=== PATIENT | female | born 1970 | race American Indian/Alaskan Native ===

== ENCOUNTER 2017-11-22 08:48 | Observation (INO) | payer OTHER ==
--- NOTE | 2017-11-22 09:06 | C.PDOC ---
History Of Present Illness 47-YEAR-OLD FEMALE, PMHx INCLUDES MIGRAINES, PRESENTS TO THE EMERGENCY DEPARTMENT WITH COMPLAINTS OF RIGHT SIDED HEADACHE, THAT SHE WOKE UP WITH AROUND ?TIME, TODAY. PT A HX OF MIGRAINES, NORMALLY GETS AN AURA BUT NO ASSOCIATED AURA TODAY. STATES NEW ONSET L SIDED CHEST PAIN ONSET WHILE DRIVING YESTERDAY AFTERNOON, WITH L ARM AND L LEG PARASTHESIAS. STATES CHEST PAIN LASTED 15 MIN, AND RESOLVED SPONTANEOUSLY, BUT PARASTHESIAS CONSTANT AND UNCHANGED. NO ASSOCIATED WEAKNESS, INTERMITTENT CHEST DISCOMFORT NOW RESOLVED. PT HAS SOME ASSOCIATED NAUSEA. EXAM NEG PMD CARLOS Time Seen by Provider: 11/22/17 09:03 Chief Complaint (Nursing): Chest Pain History Per: Patient History/Exam Limitations: no limitations Onset/Duration Of Symptoms: Hrs Current Symptoms Are (Timing): Still Present Severity: Moderate Past Medical History Reviewed: Historical Data, Nursing Documentation, Vital Signs Vital Signs: Last Vital Signs Temp 99 F 11/22/17 08:56 Pulse 84 11/22/17 10:04 Resp 16 11/22/17 10:04 BP 130/91 H 11/22/17 10:04 Pulse Ox 98 11/22/17 10:07 - Medical History PMH: HTN Family History: States: No Known Family Hx - Social History Hx Alcohol Use: Yes Hx Substance Use: No - Immunization History Hx Tetanus Toxoid Vaccination: No Hx Influenza Vaccination: No Hx Pneumococcal Vaccination: No Review Of Systems Except As Marked, All Systems Reviewed And Found Negative. Constitutional: Negative for: Fever, Chills, Weakness Cardiovascular: Positive for: Chest Pain Respiratory: Negative for: Shortness of Breath Gastrointestinal: Positive for: Nausea. Negative for: Vomiting, Abdominal Pain Musculoskeletal: Negative for: Neck Pain, Back Pain Skin: Negative for: Rash Neurological: Positive for: Numbness, Headache. Negative for: Incoordination, Change in Speech, Confusion, Altered Mental Status, Dizziness Physical Exam - Physical Exam Appears: Well, Non-toxic, No Acute Distress Skin: Normal Color, Warm, Dry Head: Atraumatic, Normacephalic Eye(s): bilateral: Normal Inspection, PERRL, EOMI Nose: Normal Oral Mucosa: Moist Lips: Normal Appearing Neck: Normal ROM Cardiovascular: Rhythm Regular Respiratory: Normal Breath Sounds, No Accessory Muscle Use Gastrointestinal/Abdominal: Soft, No Tenderness Back: Normal Inspection Extremity: Normal ROM, No Deformity, No Swelling Neurological/Psych: Other (SEE NIH) ED Course And Treatment - Laboratory Results Result Diagrams: 11/22/17 09:09 11/22/17 09:09 ECG: Interpreted By Me, Viewed By Me ECG Rhythm: Sinus Rhythm ECG Interpretation: No Acute Changes Rate From EC O2 Sat by Pulse Oximetry: 98 (RA) Pulse Ox Interpretation: Normal - CT Scan/US HEAD Other Rad Studies (CT/US): Radiology Report Reviewed (D/W DR CORONEL) CT/US Interpretation: Accession No. : [id number]. Patient Name / ID : MIS TREJO / [id number]. Exam Date : 11/22/2017 09:15:58 ( Approved ). Study Comment : Sex / Age : F / 47Y. Creator : Costa Blanco MD. Dictator : Costa Blanco MD. Restaurant Host/Hostess : Cross Tie Tram Loader : Costa Blanco MD. Approver2 : Report Date : 11/22/2017 09:34:48. My Comment : . PROCEDURE: CT HEAD WITHOUT CONTRAST. HISTORY: Code Stroke. COMPARISON: None available. TECHNIQUE: Axial computed tomography images were obtained through the head/brain without intravenous contrast. Radiation dose: Total exam DLP = 895.60 mGy-cm. This CT exam was performed using one or more of the following dose reduction techniques: Automated exposure control, adjustment of the mA and/or kV according to patient size, and/or use of iterative reconstruction technique. FINDINGS: HEMORRHAGE: No intracranial hemorrhage. BRAIN: Normal carbajal-white matter differentiation and density are appreciated throughout the cerebrum and cerebellum with the brainstem appearing unremarkable as well. There is no mass effect. There is no suspicious extra- axial fluid collection and the midline brain anatomy appears diffusely unremarkable. VENTRICLES: Unremarkable. No hydrocephalus. CALVARIUM: Unremarkable. PARANASAL SINUSES: Unremarkable as visualized. No significant inflammatory changes. MASTOID AIR CELLS: Unremarkable as visualized. No inflammatory changes. OTHER FINDINGS: None. IMPRESSION: Normal appearing CT of the Head. Follow-up head CT or MRI recommended given clinical history of stroke. Discussed with Dr. Hameed 11/22/2017 9:33 a.m.. CTA NECK Other Rad Studies (CT/US): Read By Radiologist, Radiology Report Reviewed CT/US Interpretation: Accession No. : [id number]. Patient Name / ID : MIS TREJO / [id number]. Exam Date : 11/22/2017 09:18:38 ( Addendum_ Approved ). Study Comment : Sex / Age : F / 47Y. Creator : Costa Blanco MD. Dictator : Costa Blanco MD. Restaurant Host/Hostess : Cross T[employer] Tram Loader : Costa Blanco MD. Approver2 : Report Date : 11/22/2017 09:42:13. My Comment : . ADDENDUM: Contrast Dose: Visipaque 320, 100 cc. Radiation dose:Total exam DLP = 587.85 mGy-cm. [ Addendum Report Added by Costa Blanco MD at 11/22/2017 09:44:04 ]. PROCEDURE: CT Angiography of the Brain. HISTORY: R SIDED MARTÍNEZ, LUE/LLE PARESTHESIA, CP. COMPARISON: None available. TECHNIQUE: CT angiography of the intracranial and neck arteries was performed. Coronal and sagittal maximum intensity projection reformatted images were generated. Contrast Dose: Radiation dose:Total exam DLP = mGy-cm. This CT exam was performed using one or more of the following dose reduction techniques : Automated exposure control, adjustment of the mA and/or kV according to patient size, and/or use of iterative reconstruction technique. FINDINGS: INTERNAL CEREBRAL ARTERIES: There is a moderate stenosis of the mid segment left cavernous ICA. The skull base, petrous, right cavernous and supraclinoid segments are bilaterally widely patent. ANTERIOR CEREBRAL ARTERIES: Unremarkable. A1 and A2 segments are widely patent. Smaller distal branches unremarkable, as visualized. MIDDLE CEREBRAL ARTERIES: Unremarkable. M1 and M2 segments are widely patent. Perisylvian branches grossly symmetric. POSTERIOR CIRCULATION: Basilar Artery: Unremarkable. Distal Vertebral Arteries : Unremarkable. Posterior Cerebral Arteries: Unremarkable. Posterior Inferior Cerebellar Arteries: Unremarkable. NECK CTA: Common Carotid arteries: The bilateral common carotid appear widely patent from their origins to their bifurcations with no significant stenosis appreciated. No evidence to suggest common carotid artery dissection. Internal Carotid arteries: No significant stenosis is appreciated throughout the cervical internal carotid artery segments bilaterally and there is no evidence of dissection either. External Carotid arteries: Appear unremarkable bilaterally. Vertebral arteries: Hypoplastic distal left vertebral artery is appreciated with the right vertebral artery are widely patent throughout. No significant stenosis or definite pattern of dissection. ANEURYSM/ VASCULAR MALFORMATIONS: None. OTHER FINDINGS: None. IMPRESSION: Moderate stenosis cavernous left ICA. Widely patent right ICA. Patent bilateral posterior communicating arteries. Hypoplastic left vertebral artery distal segment. No significant stenosis. No occlusion appreciable. No arteriovascular malformation or aneurysm identified. NIHSS Stroke Scale - Date/Time Evaluation Performed Date Performed: 11/22/17 Time Performed: 09:03 When Was NIHSS Performed: Code Stroke - How Severe is the Stroke Level of Consciousness: 0=Alert LOC to Questions: 0=Both comments correct LOC to commands: 0=Obeys both correctly Best Gaze: 0=Normal Visual: 0=No visual loss Facial: 0=Normal Motor Arm - Left: 0=No drift Motor Arm - Right: 0=No drift Motor Leg - Left: 0=No drift Motor Leg - Right: 0=No drift Limb Ataxia: 0=Absent Sensory: 1=Mild to moderate loss Best Language: 0=No aphasia Dysarthia: 0=Normal articulation Extinction & Inattention (Neglect): 0=Normal, no object Score: 1 NIHSS Stroke Scale 2 - Date/Time Evaluation Performed Date Performed: 11/22/17 Time Performed: 10:18 When Was NIHSS Performed: Code Stroke Re-evaluation - How Severe is the Stroke Level of Consciousness: 0=Alert LOC to Questions: 0=Both comments correct LOC to commands: 0=Obeys both correctly Best Gaze: 0=Normal Visual: 0=No visual loss Facial: 0=Normal Motor Arm - Left: 0=No drift Motor Arm - Right: 0=No drift Motor Leg - Left: 0=No drift Motor Leg - Right: 0=No drift Limb Ataxia: 0=Absent Sensory: 1=Mild to moderate loss Best Language: 0=No aphasia Dysarthia: 0=Normal articulation Extinction & Inattention (Neglect): 0=Normal, no object Score: 1 Severity Of Stroke: 1-4 = Minor Stroke Progress - Re-Evaluation Re-evaluation Note: Progress: 09:00 Code stroke called. WILL HOLD IMITREX DUE TO CONCERN POSSIBLE CVA 09:[address] Trejo, aware of ER findings, will call back. Labs and CT pending 11/22/17 10:[address] TREJO, PENDING REVIEW INTERVENTIONAL. WILL CONSULT, RECOMMENDS ASA AND BENADRYL, MG 400 MG FOR MARTÍNEZ. DEFER IMITREX. EXAM UNCH INITIAL, VSS. 11/22/17 10:19 D/W DR ALDANA C/F PMD AWARE OF ER FINDINGS WILL ADMIT - Data Reviewed Data Reviewed: Lab, Diagnostic imaging, EKG, Old records - Critical Care Citical Care: Excluding Proc Time Critical Care Time: 90 minutes - Continuity of Care Discussed patient case with:: Covering for PMD Discussed pt. case with specialty development consultant/specialty: Neurology rTPA Inclusion/Exclusion - Refusal of Treatment Patient Refused Treatment: No - Inclusion Criteria for Altepase Patient is 18 years or Older: Yes The Clinical Diagnosis of Ischemic Stroke That is Causing a Potentially Disabling Neurological Deficit: Yes Time of Onset is Well Established to be Less Than 270 Minute Before Treatment Would Begin: No Risk/Benefit Discussed With Patient/Family Member Present: Yes - Exclusion Criteria for Altepase Uncontrolled Hypertension at Time of Treatment (Systolic BP above 185 or Diastolic BP above 110 mmHg): No Active Internal Bleeding: No Known Bleeding Diathesis Including but Not Limited to: Platelets Below 100,000/ mm,PTT Above 40 sec After Heparin Use, Current Use of Oral Anitcoagulant With INR Greater Than 1.7 or PT Greater Than 15 secs: No Evidence of an Intracranial Hemorrhage: No Evidence of Major Acute Infarct With Signs Greater Than 1/3 MCA Territory: No Suspicion of Subarachnoid Hemorrhage on Pretreatment Evaluation Even if CT Head Negative For Hemorrhage: No - Warning to TPA With Conditions Following Conditions Weighed Against Anticipated Benefit: Yes Condition: Stroke Serevity Too Mild, Care Team Unable to Determine Eligibilty Medical Decision Making Medical Decision Making: Plan: * Bloodwork * CT Head/Neck * EKG * Chest X-Ray * Fingerstick * IVFs * Reassess and Disposition Disposition Counseled Patient/Family Regarding: Studies Performed, Diagnosis - Disposition Disposition: HOSPITALIZED Disposition Time: 10:20 Condition: STABLE Forms: [facility] ([place]) - Clinical Impression Clinical Impression: Chest pain, Headache, TIA (transient ischemic attack) - Scribe Statement The provider has reviewed the documentation as recorded by the Scribe (Adalid Rivas) All medical record entries made by the Scribe were at my direction and personally dictated by me. I have reviewed the chart and agree that the record accurately reflects my personal performance of the history, physical exam, medical decision making, and the department course for this patient. I have also personally directed, reviewed, and agree with the discharge instructions and disposition. Decision To Admit - Pt Status Changed To: Hospital Disposition Of: Observation - . Bed Request Type: Telemetry Admitting Physician: Paco Aldana Patient Diagnosis: Chest pain, Headache, TIA (transient ischemic attack)
[2017-11-22] MEDS ORDERED: Iodixanol 320 MG/ML 100 ML BOTTLE IV ONE (09:08)
[2017-11-22 09:24] LABS: BASO # 0.1 K/uL (0.0-0.2); EOS # 0.2 K/uL (0.0-0.7); EOS % 2.8 % (0.0-4.0); HEMOGLOBIN 14.4 g/dL (11.0-16.0); LYMPH # 1.4 K/uL (1.0-4.3); LYMPH % 18.3 % (20.0-40.0); MEAN CELL VOLUME 89.7 fL (81.0-99.0); MEAN CORPUSCULAR HEMOGLOBIN 30.9 pg (27.0-31.0); MEAN CORPUSCULAR HGB CONC 34.5 g/dL (33.0-37.0); MEAN PLATELET VOLUME 7.5 fL (7.2-11.7); MONO # 0.8 K/uL (0.0-0.8); MONO % 10.4 % (0.0-10.0); NEUT # 5.2 K/uL (1.8-7.0); NEUT % 67.5 % (50.0-75.0); RBC 4.66 Mil/uL (3.80-5.20); WHITE BLOOD COUNT 7.7 K/uL (4.8-10.8)
[2017-11-22 09:32] LABS: INR 1.1; PROTHROMBIN TIME 11.9 SECONDS (9.7-12.2)
[2017-11-22 09:35] LABS: HDL CHOLESTEROL 53 mg/dL (30-70)
[2017-11-22] MEDS: Sodium Chloride 0.9% 1,000 ML IV SCH (09:36)
--- NOTE | 2017-11-22 09:36 | CT ---
PROCEDURE: CT HEAD WITHOUT CONTRAST. HISTORY: Code Stroke COMPARISON: None available. TECHNIQUE: Axial computed tomography images were obtained through the head/brain without intravenous contrast. Radiation dose: Total exam DLP = 895.60 mGy-cm. This CT exam was performed using one or more of the following dose reduction techniques: Automated exposure control, adjustment of the mA and/or kV according to patient size, and/or use of iterative reconstruction technique. FINDINGS: HEMORRHAGE: No intracranial hemorrhage. BRAIN: Normal carbajal-white matter differentiation and density are appreciated throughout the cerebrum and cerebellum with the brainstem appearing unremarkable as well. There is no mass effect. There is no suspicious extra-axial fluid collection and the midline brain anatomy appears diffusely unremarkable. VENTRICLES: Unremarkable. No hydrocephalus. CALVARIUM: Unremarkable. PARANASAL SINUSES: Unremarkable as visualized. No significant inflammatory changes. MASTOID AIR CELLS: Unremarkable as visualized. No inflammatory changes. OTHER FINDINGS: None. IMPRESSION: Normal appearing CT of the Head. Follow-up head CT or MRI recommended given clinical history of stroke. Discussed with Dr. Hameed 11/22/2017 9:33 a.m..
[2017-11-22] MEDS ORDERED: Sodium Chloride 0.9% 1,000 ML ONE (09:37)
--- NOTE | 2017-11-22 09:43 | CT ---
PROCEDURE: CT Angiography of the Brain. HISTORY: R SIDED MARTÍNEZ, LUE/LLE PARESTHESIA, CP COMPARISON: None available. TECHNIQUE: CT angiography of the intracranial and neck arteries was performed. Coronal and sagittal maximum intensity projection reformatted images were generated. Contrast Dose: Radiation dose:Total exam DLP = mGy-cm. This CT exam was performed using one or more of the following dose reduction techniques: Automated exposure control, adjustment of the mA and/or kV according to patient size, and/or use of iterative reconstruction technique. FINDINGS: INTERNAL CEREBRAL ARTERIES: There is a moderate stenosis of the mid segment left cavernous ICA. The skull base, petrous, right cavernous and supraclinoid segments are bilaterally widely patent. ANTERIOR CEREBRAL ARTERIES: Unremarkable. A1 and A2 segments are widely patent. Smaller distal branches unremarkable, as visualized. MIDDLE CEREBRAL ARTERIES: Unremarkable. M1 and M2 segments are widely patent. Perisylvian branches grossly symmetric. POSTERIOR CIRCULATION: Basilar Artery: Unremarkable. Distal Vertebral Arteries: Unremarkable. Posterior Cerebral Arteries: Unremarkable. Posterior Inferior Cerebellar Arteries: Unremarkable. NECK CTA: Common Carotid arteries: The bilateral common carotid appear widely patent from their origins to their bifurcations with no significant stenosis appreciated. No evidence to suggest common carotid artery dissection. Internal Carotid arteries: No significant stenosis is appreciated throughout the cervical internal carotid artery segments bilaterally and there is no evidence of dissection either. External Carotid arteries: Appear unremarkable bilaterally. Vertebral arteries: Hypoplastic distal left vertebral artery is appreciated with the right vertebral artery are widely patent throughout. No significant stenosis or definite pattern of dissection. ANEURYSM/ VASCULAR MALFORMATIONS: None. OTHER FINDINGS: None. IMPRESSION: Moderate stenosis cavernous left ICA. Widely patent right ICA. Patent bilateral posterior communicating arteries. Hypoplastic left vertebral artery distal segment. No significant stenosis. No occlusion appreciable. No arteriovascular malformation or aneurysm identified.
[2017-11-22 09:47] LABS: LDL CHOLESTEROL 96 mg/dL (0-129)
--- NOTE | 2017-11-22 09:56 | RAD ---
HISTORY: Code Stroke COMPARISON: No prior. FINDINGS: LUNGS: No active pulmonary disease. PLEURA: No significant pleural effusion identified, no pneumothorax apparent. CARDIOVASCULAR: Normal. OSSEOUS STRUCTURES: No significant abnormalities. VISUALIZED UPPER ABDOMEN: Normal. OTHER FINDINGS: None. IMPRESSION: No acute cardiopulmonary disease appreciated.
[2017-11-22 09:59] LABS: ALB/GLOB RATIO 1.3 (1.0-2.1); ALBUMIN 4.2 g/dL (3.5-5.0); ALT/SGPT 19 U/L (9-52); AST/SGOT 21 U/L (14-36); BLOOD UREA NITROGEN 8 mg/dL (7-17); CALCIUM 9.1 mg/dl (8.6-10.4); GFR AFRICAN-AMERICAN > 60; GFR NON-AFRICAN AMERICAN > 60
[2017-11-22 10:04] LABS: HCG,QUALITATIVE URINE NEGATIVE (NEGATIVE)
[2017-11-22 10:06] LABS: SQUAMOUS EPITHIAL 1 /hpf (0-5); URINE BILIRUBIN NEGATIVE (NEGATIVE); URINE BLOOD NEGATIVE (NEGATIVE); URINE CLARITY Clear (Clear); URINE COLOR Straw (YELLOW); URINE GLUCOSE (UA) NORMAL (Normal); URINE LEUKOCYTE ESTERASE NEG Leu/uL (Negative); URINE PROTEIN NEGATIVE (NEGATIVE); URINE UROBILINOGEN NORMAL mg/dL (0.2-1.0)
[2017-11-22] MEDS ORDERED: DiphenhydrAMINE 50 mg/ml Inj IVP STA (10:59)
[2017-11-22] MEDS ORDERED: Magnesium Sulfate 1 gm in D5W 1 GM/100 ML BAG IV ONE (10:59)
[2017-11-22] MEDS ORDERED: Magnesium Sulfate 1 gm in D5W 1 GM/100 ML BAG IVPB ONE (11:26)
[2017-11-22] MEDS ORDERED: DiphenhydrAMINE 50 mg/ml Inj ONE (11:26)
--- NOTE | 2017-11-22 12:29 | CP.PCM.CON ---
History of Present Illness - History of Present Illness History of Present Illness: 47 yr old woman with pmh of thyroiditis, Hypertension (diagnosed recently) and chronic migraine since childhood, presents for evaluation of spell that started yesterday afternoon. Miss Sanchez was driving at about 3 pm yesterday when she started to fell her left arm and leg became intensely numb and uncomfortable. She had no word finding difficulty visual symptoms, or weakness. This was accompanied by sharp chest pain that has since resolved, but the left arm and leg numbness persists. This morning, patient awoke with a headache that is 6/10, throbbing, typical of her migraine, and she came to hospital. She is not a TPA candidate as time of onset exceeeds the window. CTA head was done and shows moderate stenosis of her left ICA, but after consulting neurointerventional, , there is no intervention at this time. Miss Sanchez received benadryl and toradol and her headache resolved but numbness persists. Migraine history is as follows: started at around age 10, has tried topamax, depakote, imitrex and migranol. Never, tried botox, and since she started antihypertensives, her migraine frequency has decreased to 4 times a month, during her menses. Triggers are red wine and stress. ROS: as above. PMH/pSH: as above, as well as pituitary prolactinoma. FH/SH: no tobacco, occasional etoh. Works in an [employer] company, single. All: nkda. On exam: AAOX3. PERRL. Cn 2-12 normal. No facial droop. Speech fluent, no apraxia, no deficits in language. motor: strength: 5/5 ul and ll bl. sensory: decreased ft, pin in left arm and leg. Cerebellar: no dysmetria, gait normal, no ataxia. DTR: +2 ul and ll bl. toes downgoing, no clonus. Past Patient History - Past Social History Smoking Status: Never Smoked - CARDIAC Hx Hypertension: Yes - PSYCHIATRIC Hx Substance Use: No - SURGICAL HISTORY Hx Surgeries: No - ANESTHESIA Hx Anesthesia: No Meds Allergies/Adverse Reactions: Allergies Allergy/AdvReac Type Severity Reaction Status Date / Time No Known Allergies Allergy Verified 11/22/17 09:00 - Medications Medications: Current Medications Sodium Chloride (Sodium Chloride 0.9%) 1,000 mls @ 100 mls/hr IV .Q10H ANAIS Last Admin: 11/22/17 09:36 Dose: 100 mls/hr Results - Vital Signs Recent Vital Signs: Last Vital Signs Temp 99 F 11/22/17 08:56 Pulse 81 11/22/17 11:00 Resp 18 11/22/17 11:00 BP 130/87 11/22/17 11:00 Pulse Ox 97 11/22/17 11:00 - Labs Result Diagrams: 11/22/17 09:09 11/22/17 09:09 Labs: Laboratory Results - last 24 hr 11/22/17 11/22/17 11/22/17 08:58 09:09 09:09 WBC 7.7 RBC 4.66 Hgb 14.4 Hct 41.8 MCV 89.7 MCH 30.9 MCHC 34.5 RDW 14.0 Plt Count 290 MPV 7.5 Neut % (Auto) 67.5 Lymph % (Auto) 18.3 L [place] % (Auto) 10.4 H Eos % (Auto) 2.8 Baso % (Auto) 1.0 Neut # (Auto) 5.2 Lymph # (Auto) 1.4 [place] # (Auto) 0.8 Eos # (Auto) 0.2 Baso # (Auto) 0.1 PT 11.9 INR 1.1 APTT 32 Sodium Potassium Chloride Carbon Dioxide Anion Gap BUN Creatinine Est GFR ( Amer) Est GFR (Non-Af Amer) POC Glucose (mg/dL) 96 Random Glucose Hemoglobin A1c Calcium Total Bilirubin AST ALT Alkaline Phosphatase Troponin I Total Protein Albumin Globulin Albumin/Globulin Ratio Triglycerides Cholesterol LDL Cholesterol Direct HDL Cholesterol Urine Color Urine Clarity Urine pH Ur Specific [place] Urine Protein Urine Glucose (UA) Urine Ketones Urine Blood Urine Nitrate Urine Bilirubin Urine Urobilinogen Ur Leukocyte Esterase Urine WBC (Auto) Urine RBC (Auto) Ur Squamous Epith Cells Urine HCG, Qual Blood Type Antibody Screen 11/22/17 11/22/17 11/22/17 09:09 09:09 09:39 WBC RBC Hgb Hct MCV MCH MCHC RDW Plt Count MPV Neut % (Auto) Lymph % (Auto) [place] % (Auto) Eos % (Auto) Baso % (Auto) Neut # (Auto) Lymph # (Auto) [place] # (Auto) Eos # (Auto) Baso # (Auto) PT INR APTT Sodium 141 Potassium 3.8 Chloride 101 Carbon Dioxide 27 Anion Gap 17 BUN 8 Creatinine 0.7 Est GFR ( Amer) > 60 Est GFR (Non-Af Amer) > 60 POC Glucose (mg/dL) Random Glucose 88 Hemoglobin A1c 5.0 Calcium 9.1 Total Bilirubin 0.9 AST 21 ALT 19 Alkaline Phosphatase 71 Troponin I < 0.0120 Total Protein 7.4 Albumin 4.2 Globulin 3.2 Albumin/Globulin Ratio 1.3 Triglycerides 86 Cholesterol 166 LDL Cholesterol Direct 96 HDL Cholesterol 53 Urine Color Urine Clarity Urine pH Ur Specific [place] Urine Protein Urine Glucose (UA) Urine Ketones Urine Blood Urine Nitrate Urine Bilirubin Urine Urobilinogen Ur Leukocyte Esterase Urine WBC (Auto) Urine RBC (Auto) Ur Squamous Epith Cells Urine HCG, Qual Blood Type O POSITIVE Antibody Screen Negative 11/22/17 09:52 WBC RBC Hgb Hct MCV MCH MCHC RDW Plt Count MPV Neut % (Auto) Lymph % (Auto) [place] % (Auto) Eos % (Auto) Baso % (Auto) Neut # (Auto) Lymph # (Auto) [place] # (Auto) Eos # (Auto) Baso # (Auto) PT INR APTT Sodium Potassium Chloride Carbon Dioxide Anion Gap BUN Creatinine Est GFR ( Amer) Est GFR (Non-Af Amer) POC Glucose (mg/dL) Random Glucose Hemoglobin A1c Calcium Total Bilirubin AST ALT Alkaline Phosphatase Troponin I Total Protein Albumin Globulin Albumin/Globulin Ratio Triglycerides Cholesterol LDL Cholesterol Direct HDL Cholesterol Urine Color Straw Urine Clarity Clear Urine pH 8.0 Ur Specific [place] 1.016 Urine Protein Negative Urine Glucose (UA) Normal Urine Ketones Negative Urine Blood Negative Urine Nitrate Negative Urine Bilirubin Negative Urine Urobilinogen Normal Ur Leukocyte Esterase Neg Urine WBC (Auto) < 1 Urine RBC (Auto) < 1 Ur Squamous Epith Cells 1 Urine HCG, Qual Negative Blood Type Antibody Screen Assessment & Plan - Assessment and Plan (Free Text) Assessment: 47 yr old woman who has most likely a right thalamic stroke,6. as well as chronic refractory migraine. We will admit her and do stroke workup. HER NIH stroke scale is 1, and she is not a TPA candidate. PLan: 1. aspirin 325 mg po daily 2. PLease keep bp normotensive. 3. MRI Brain without contrast. 4. ECHO with bubble study 5. protein c, protein s, antiphospholipid antibody, homocysteine, lupus anticoagulant, factor 5 leiden, prothrombin mutation gene 6. admit to telemetry 7. PT/st/0t 8. venodynes. 9. Neurochecks. 10 botox for migraine on an outpatient basis with Dr. Clarke or myself. Thank you Dr. Pena
--- NOTE | 2017-11-22 15:35 | CP.PCM.HP ---
Past Patient History - Past Social History Smoking Status: Never Smoked - CARDIAC Hx Hypertension: Yes - PSYCHIATRIC Hx Substance Use: No - SURGICAL HISTORY Hx Surgeries: No - ANESTHESIA Hx Anesthesia: No Meds Allergies/Adverse Reactions: Allergies Allergy/AdvReac Type Severity Reaction Status Date / Time No Known Allergies Allergy Verified 11/22/17 09:00 Results - Vital Signs Recent Vital Signs: Last Vital Signs Temp 98.2 F 11/22/17 12:45 Pulse 70 11/22/17 14:30 Resp 18 11/22/17 14:30 BP 117/73 11/22/17 14:30 Pulse Ox 99 11/22/17 14:30 - Labs Result Diagrams: 11/22/17 09:09 11/22/17 09:09 Labs: Laboratory Results - last 24 hr 11/22/17 11/22/17 11/22/17 08:58 09:09 09:09 WBC 7.7 RBC 4.66 Hgb 14.4 Hct 41.8 MCV 89.7 MCH 30.9 MCHC 34.5 RDW 14.0 Plt Count 290 MPV 7.5 Neut % (Auto) 67.5 Lymph % (Auto) 18.3 L Henderson % (Auto) 10.4 H Eos % (Auto) 2.8 Baso % (Auto) 1.0 Neut # (Auto) 5.2 Lymph # (Auto) 1.4 Henderson # (Auto) 0.8 Eos # (Auto) 0.2 Baso # (Auto) 0.1 PT 11.9 INR 1.1 APTT 32 Sodium Potassium Chloride Carbon Dioxide Anion Gap BUN Creatinine Est GFR ( Amer) Est GFR (Non-Af Amer) POC Glucose (mg/dL) 96 Random Glucose Hemoglobin A1c Calcium Total Bilirubin AST ALT Alkaline Phosphatase Troponin I Total Protein Albumin Globulin Albumin/Globulin Ratio Triglycerides Cholesterol LDL Cholesterol Direct HDL Cholesterol Urine Color Urine Clarity Urine pH Ur Specific Gilead Urine Protein Urine Glucose (UA) Urine Ketones Urine Blood Urine Nitrate Urine Bilirubin Urine Urobilinogen Ur Leukocyte Esterase Urine WBC (Auto) Urine RBC (Auto) Ur Squamous Epith Cells Urine HCG, Qual Blood Type Antibody Screen 11/22/17 11/22/17 11/22/17 09:09 09:09 09:39 WBC RBC Hgb Hct MCV MCH MCHC RDW Plt Count MPV Neut % (Auto) Lymph % (Auto) Henderson % (Auto) Eos % (Auto) Baso % (Auto) Neut # (Auto) Lymph # (Auto) Henderson # (Auto) Eos # (Auto) Baso # (Auto) PT INR APTT Sodium 141 Potassium 3.8 Chloride 101 Carbon Dioxide 27 Anion Gap 17 BUN 8 Creatinine 0.7 Est GFR ( Amer) > 60 Est GFR (Non-Af Amer) > 60 POC Glucose (mg/dL) Random Glucose 88 Hemoglobin A1c 5.0 Calcium 9.1 Total Bilirubin 0.9 AST 21 ALT 19 Alkaline Phosphatase 71 Troponin I < 0.0120 Total Protein 7.4 Albumin 4.2 Globulin 3.2 Albumin/Globulin Ratio 1.3 Triglycerides 86 Cholesterol 166 LDL Cholesterol Direct 96 HDL Cholesterol 53 Urine Color Urine Clarity Urine pH Ur Specific Gilead Urine Protein Urine Glucose (UA) Urine Ketones Urine Blood Urine Nitrate Urine Bilirubin Urine Urobilinogen Ur Leukocyte Esterase Urine WBC (Auto) Urine RBC (Auto) Ur Squamous Epith Cells Urine HCG, Qual Blood Type O POSITIVE Antibody Screen Negative 11/22/17 09:52 WBC RBC Hgb Hct MCV MCH MCHC RDW Plt Count MPV Neut % (Auto) Lymph % (Auto) Henderson % (Auto) Eos % (Auto) Baso % (Auto) Neut # (Auto) Lymph # (Auto) Henderson # (Auto) Eos # (Auto) Baso # (Auto) PT INR APTT Sodium Potassium Chloride Carbon Dioxide Anion Gap BUN Creatinine Est GFR ( Amer) Est GFR (Non-Af Amer) POC Glucose (mg/dL) Random Glucose Hemoglobin A1c Calcium Total Bilirubin AST ALT Alkaline Phosphatase Troponin I Total Protein Albumin Globulin Albumin/Globulin Ratio Triglycerides Cholesterol LDL Cholesterol Direct HDL Cholesterol Urine Color Straw Urine Clarity Clear Urine pH 8.0 Ur Specific Gilead 1.016 Urine Protein Negative Urine Glucose (UA) Normal Urine Ketones Negative Urine Blood Negative Urine Nitrate Negative Urine Bilirubin Negative Urine Urobilinogen Normal Ur Leukocyte Esterase Neg Urine WBC (Auto) < 1 Urine RBC (Auto) < 1 Ur Squamous Epith Cells 1 Urine HCG, Qual Negative Blood Type Antibody Screen
[2017-11-22 18:19] VITALS: RESP 20
[2017-11-22 20:34] LABS: CK-MB 0.28 ng/mL (0.0-3.38)
[2017-11-23 02:19] LABS: CK-MB 0.25 ng/mL (0.0-3.38)
[2017-11-23] MEDS: Sodium Chloride 0.9% 1,000 ML IV SCH ×2 (06:13→15:10)
[2017-11-23] MEDS: Enoxaparin 80 mg Syringe SC SCH (10:04)
--- NOTE | 2017-11-23 11:28 | CARD ---
APPROVED REPORT EKG Measurement Heart [id number] <Conclusion> Normal sinus rhythm Possible Left atrial enlargement Borderline ECG
--- NOTE | 2017-11-23 17:10 | CP.PCM.CON ---
History of Present Illness - History of Present Illness History of Present Illness: 47 F with hx of HTN admitted for TIA like symptoms. denies chest pain and dyspnea Review of Systems - Constitutional Constitutional: absent: As Per HPI, Anorexia, Chills, Daytime Sleepiness, Excessive Sweating, Fatigue, Fever, Frequent Falls, Headache, Increased Appetite , Lethargy, Malaise, Night Sweats, Snoring, Sleep Apnea, Weight Gain, Weight Loss, Weakness, Other - EENT Eyes: absent: As Per HPI, Blind Spots, Blurred Vision, Change in Vision, Decreased Night Vision, Diplopia, Discharge, Dry Eye, Exophthalmos, Floaters, Irritation, Itchy Eyes, Loss of Peripheral Vision, Pain, Photophobia, Requires Corrective Lenses, Sees Flashes, Spots in Vision, Tunnel Vision, Other Visual Disturbances, Loss of Vision, Other Ears: absent: As Per HPI, Decreased Hearing, Ear Discharge, Ear Pain, Tinnitus, Abnormal Hearing, Disequilibrium, Dizziness, Other Nose/Mouth/Throat: absent: As Per HPI, Epistaxis, Nasal Congestion, Nasal Discharge, Nasal Obstruction, Nasal Trauma, Nose Pain, Post Nasal Drip, Sinus Pain, Sinus Pressure, Bleeding Gums, Change in Voice, Dental Pain, Dry Mouth, Dysphagia, Halitosis, Hoarsness, Lip Swelling, Mouth Lesions, Mouth Pain, Odynophagia, Sore Throat, Throat Swelling, Tongue Swelling, Facial Pain, Neck Pain, Neck Mass, Other - Cardiovascular Cardiovascular: absent: As Per HPI, Acrocyanosis, Chest Pain, Chest Pain at Rest , Chest Pain with Activity, Claudication, Diaphoresis, Dyspnea, Dyspnea on Exertion, Edema, Irregular Heart Rhythm, Pain Radiating to Arm/Neck/Jaw, Leg Edema, Leg Ulcers, Lightheadedness, Orthopnea, Palpitations, Paroxysmal Nocturnal Dyspnea, Pedal Edema, Radiating Pain, Rapid Heart Rate, Slow Heart Rate, Syncope, Other - Respiratory Respiratory: absent: As Per HPI, Cough, Dyspnea, Hemoptysis, Dyspnea on Exertion , Wheezing, Snoring, Stridor, Pain on Inspiration, Chest Congestion, Excessive Mucous Production, Change in Mucous Color, Pain with Coughing, Other - Gastrointestinal Gastrointestinal: absent: As Per HPI, Abdominal Pain, Belching, Bloating, Change in Bowel Habits, Change in Stool Character, Coffee Ground Emesis, Constipation, Cramping, Diarrhea, Dyspepsia, Dysphagia, Early Satiety, Excessive Flatus, Fecal Incontinence, Heartburn, Hematemesis, Hematochezia, Loose Stools, Melena, Nausea, Odynophagia, Temesmus, Vomiting, Other - Genitourinary Genitourinary: absent: As Per HPI, Change in Urinary Stream, Difficulty Urinating, Dysuria, Flank Pain, Hematuria, Pyuria, Nocturia, Urinary Incontinence, Urinary Frequency, Urinary Hesitance, Urinary Urgency, Voiding Freq/Small Amts, Freq UTI, Hx Renal/Bladder Calculi, Hx /Renal Surgery, Bladder Distension, Other - Musculoskeletal Musculoskeletal: absent: As Per HPI, Abnormal Gait, Arthralgias, Atrophy, Back Pain, Deformity, Joint Swelling, Limited Range of Motion, Loss of Height, Muscle Cramps, Muscle Weakness, Myalgias, Neck Pain, Numbness, Radiating Pain into Limb, Stiffness, Tingling, Other - Integumentary Integumentary: absent: As Per HPI, Acne, Alopecia, Bleeding Lesions, Change in Hair, Change in Nails, Change in Pigmentation, Changing Lesions, Dry Skin, Erythema, Furuncle, Hirsutism, Lesions, New Lesions, Non-Healing Lesions, Photosensitivity, Pruritus, Rash, Skin Pain, Skin Ulcer, Sores, Striae, Swelling , Unusual Bruising, Wounds, Jaundice, Other - Neurological Neurological: Other Additional comments: Tingling and numbeness in left side of the body - Psychiatric Psychiatric: As Per HPI - Endocrine Endocrine: As Per HPI - Hematologic/Lymphatic Hematologic: absent: As Per HPI, Easy Bleeding, Easy Bruising, Lymphadenopathy, Other Past Patient History - Past Social History Smoking Status: Never Smoked - CARDIAC Hx Hypertension: Yes - PSYCHIATRIC Hx Substance Use: No - SURGICAL HISTORY Hx Surgeries: No - ANESTHESIA Hx Anesthesia: No Meds Allergies/Adverse Reactions: Allergies Allergy/AdvReac Type Severity Reaction Status Date / Time No Known Allergies Allergy Verified 11/22/17 09:00 - Medications Medications: Current Medications Amlodipine Besylate (Norvasc) 10 mg PO DAILY [facility] Last Admin: 11/23/17 09:58 Dose: 10 mg Aspirin (Aspirin Chewable) 81 mg PO DAILY [facility] Last Admin: 11/23/17 09:58 Dose: 81 mg Enoxaparin Sodium (Lovenox) 80 mg SC DAILY [facility] Last Admin: 11/23/17 10:04 Dose: Not Given Sodium Chloride (Sodium Chloride 0.9%) 1,000 mls @ 100 mls/hr IV .Q10H [facility] Last Admin: 11/23/17 06:13 Dose: 100 mls/hr Pneumococcal Polyvalent Vaccine (Pneumovax 23 Vaccine) 0.5 ml IM .ONCE ONE Stop: 11/24/17 10:01 Physical Exam - Head Exam Head Exam: ATRAUMATIC, NORMAL INSPECTION - Eye Exam Eye Exam: EOMI, Normal appearance Pupil Exam: NORMAL ACCOMODATION - ENT Exam ENT Exam: Mucous Membranes Moist, Normal Exam - Neck Exam Neck exam: Positive for: Normal Inspection - Respiratory Exam Respiratory Exam: Clear to Auscultation Bilateral, NORMAL BREATHING PATTERN - Cardiovascular Exam Cardiovascular Exam: REGULAR RHYTHM, +S1, +S2 - GI/Abdominal Exam GI & Abdominal Exam: Normal Bowel Sounds, Soft - Extremities Exam Extremities exam: Positive for: normal inspection - Back Exam Back exam: NORMAL INSPECTION - Neurological Exam Neurological exam: Alert, CN II-XII Intact, Oriented x3 - Psychiatric Exam Psychiatric exam: Normal Affect - Skin Skin Exam: Dry, Normal Color Results - Vital Signs Recent Vital Signs: Last Vital Signs Temp 98.4 F 11/23/17 15:10 Pulse 74 11/23/17 15:10 Resp 20 11/23/17 15:10 BP 116/81 11/23/17 15:10 Pulse Ox 97 11/23/17 15:10 - Labs Result Diagrams: 11/22/17 09:09 11/22/17 09:09 Labs: Laboratory Results - last 24 hr 11/22/17 11/23/17 19:58 01:52 Total Creatine Kinase 87 74 CK-MB (Mass) 0.28 0.25 Troponin I < 0.0120 < 0.0120 - EKG Data EKG shows normal: Sinus rhythm Assessment & Plan - Assessment and Plan (Free Text) Assessment: 1. HTN controlled 2. TIA like symptoms Prior cardiac work up negative in the office 2015 (Stress and ECHO)
--- NOTE | 2017-11-23 17:29 | MRI ---
PROCEDURE: MRI BRAIN WITHOUT CONTRAST HISTORY: headache neuro changes COMPARISON: Noncontrast head CT 11/22/2017. TECHNIQUE: Multiplanar, multisequence MR images of the brain were obtained without intravenous contrast enhancement. FINDINGS: HEMORRHAGE: None DWI: No evidence of an acute or early subacute infarction. BRAIN PARENCHYMA: Intrinsic signal throughout the carbajal and white matter structures above below the tentorium appears within normal limits including the brainstem. There is no mass effect, parenchymal edema or loss of the corticomedullary differentiation. Midline brain anatomy appears within normal limits including the corpus callosum, brainstem and craniocervical junction. There is no suspicious extra-axial fluid collection identified. Reportedly, there is history of pituitary adenoma. There is no definite pattern of pituitary macro adenoma. Standard MRI is not configured to evaluate for microadenoma in the vast majority of cases. VENTRICLES: Unremarkable. No hydrocephalus. CRANIUM: Unremarkable. ORBITS: Grossly unremarkable. PARANASAL SINUSES/MASTOIDS: Clear VASCULAR SYSTEM: Skull base flow voids intact. OTHER FINDINGS: None. IMPRESSION: Unremarkable noncontrast MRI of the brain. Patient apparently reports prior pituitary adenoma. No macro adenoma is identified. Standard brain MRI is not protocol to to evaluate for microadenoma adequately. Accordingly, a microadenoma is not completely excluded but is not seen either in this exam. .
--- NOTE | 2017-11-23 19:24 | CP.PCM.PN ---
Subjective - Date & Time of Evaluation Date of Evaluation: 11/23/17 Time of Evaluation: 19:24 Objective - Vital Signs/Intake and Output Vital Signs (last 24 hours): Temp Pulse Resp BP Pulse Ox 98.4 F 74 20 116/81 97 11/23/17 15:10 11/23/17 15:10 11/23/17 15:10 11/23/17 15:10 11/23/17 15:10 - Medications Medications: Current Medications Amlodipine Besylate (Norvasc) 10 mg PO DAILY [facility] Last Admin: 11/23/17 09:58 Dose: 10 mg Aspirin (Aspirin Chewable) 81 mg PO DAILY [facility] Last Admin: 11/23/17 09:58 Dose: 81 mg Enoxaparin Sodium (Lovenox) 80 mg SC DAILY [facility] Last Admin: 11/23/17 10:04 Dose: Not Given Sodium Chloride (Sodium Chloride 0.9%) 1,000 mls @ 100 mls/hr IV .Q10H [facility] Last Admin: 11/23/17 06:13 Dose: 100 mls/hr Pneumococcal Polyvalent Vaccine (Pneumovax 23 Vaccine) 0.5 ml IM .ONCE ONE Stop: 11/24/17 10:01 - Labs Labs: 11/22/17 09:09 11/22/17 09:09 PT 11.9 SECONDS (9.7-12.2) 11/22/17 09:09 INR 1.1 11/22/17 09:09 APTT 32 SECONDS (21-34) 11/22/17 09:09
[2017-11-24] MEDS ORDERED: Valproate 500 MG in Sodium Chloride 0.9% 100 ML IVPB ONE (08:34)
--- NOTE | 2017-11-24 08:40 | CP.PCM.PN ---
Subjective - Date & Time of Evaluation Date of Evaluation: 11/24/17 Time of Evaluation: 08:37 - Subjective Subjective: Ms. Sanchez was seen and examined at the bedside. She is alert, oriented in all spheres. She claims of experiencing headache in her left temporal area, non- radiating, with pain scale 8/10. She denies any photophobia, phonophobia, blurred vision, diplopia, nausea, or vomiting. She is able to follow simple commands and tolerate PO intake. MRI of the brain showed unremarkable, no macro adenoma identified. There was no untoward events overnight. Objective - Vital Signs/Intake and Output Vital Signs (last 24 hours): Temp Pulse Resp BP Pulse Ox 97.9 F 77 20 135/90 100 11/24/17 08:21 11/24/17 08:21 11/24/17 08:21 11/24/17 08:21 11/24/17 08:21 Intake and Output: 11/24/17 11/24/17 06:59 18:59 Intake Total 1240 Balance 1240 - Medications Medications: Current Medications Amlodipine Besylate (Norvasc) 10 mg PO DAILY [facility] Last Admin: 11/23/17 09:58 Dose: 10 mg Aspirin (Aspirin Chewable) 81 mg PO DAILY [facility] Last Admin: 11/23/17 09:58 Dose: 81 mg Dexamethasone (Decadron Inj) 10 mg IVP ONCE ONE Stop: 11/24/17 08:34 Enoxaparin Sodium (Lovenox) 80 mg SC DAILY [facility] Last Admin: 11/23/17 10:04 Dose: Not Given Sodium Chloride (Sodium Chloride 0.9%) 1,000 mls @ 100 mls/hr IV .Q10H [facility] Last Admin: 11/23/17 15:10 Dose: Not Given Magnesium Sulfate/Dextrose (Magnesium Sulfate 1 Gm/100 Ml D5w) 1 gm in 100 mls @ 300 mls/hr IVPB Q30M [facility] Stop: 11/24/17 09:34 Valproate Sodium 500 mg/ (Sodium Chloride) 105 mls @ 0 mls/hr IVPB ONCE ONE PRN Reason: Per Protocol Stop: 11/24/17 08:35 Magnesium Oxide (Mag-Ox) 400 mg PO BID [facility] Pneumococcal Polyvalent Vaccine (Pneumovax 23 Vaccine) 0.5 ml IM .ONCE ONE Stop: 11/24/17 10:01 - Labs Labs: 11/22/17 09:09 11/22/17 09:09 PT 11.9 SECONDS (9.7-12.2) 11/22/17 09:09 INR 1.1 11/22/17 09:09 APTT 32 SECONDS (21-34) 11/22/17 09:09 - Constitutional Appears: No Acute Distress - Head Exam Head Exam: NORMAL INSPECTION - Eye Exam Pupil Exam: PERRL - Neurological Exam Neurological Exam: Alert, Awake, CN II-XII Intact, Oriented x3 Neuro motor strength exam: Left Upper Extremity: 5, Right Upper Extremity: 5, Left Lower Extremity: 5, Right Lower Extremity: 5 Additional comments: No neuro deficits noted Assessment and Plan (1) Migraine Assessment & Plan: Case discussed with Dr. Clarke, continue all current medical regimen. Recommend Magnesium sulfate 2 gms IVPB for one dose, decadron 10 mg IV for one dose, and depakote 500 mg IVPB for one dose. Recommend to start on magnesium oxide 400 mg PO BID. Recommend hydration, reduction of stress, repeat CTH without contrast if severe headache persist, and outpatient follow up with Dr. Clarke/ Jean at [address] [place] [address] [place] [address] tel. # [phone]. Status: Acute
[2017-11-24] MEDS: Magnesium Oxide 400 mg Tab UD PO SCH ×2 (09:52→17:24)
[2017-11-24] MEDS: Magnesium Sulfate 1 gm in D5W 1 GM/100 ML BAG IVPB SCH ×2 (09:53→12:07)
[2017-11-24] MEDS ORDERED: Pneumococcal 23-Valent Vaccine IM ONE (10:00)
[2017-11-24] MEDS: Enoxaparin 80 mg Syringe SC SCH (10:57)
--- NOTE | 2017-11-24 11:24 | VASCLAB ---
PROCEDURE: HISTORY: Dizziness, Left sided weakness COMPARISON: None available. TECHNIQUE: Grayscale and duplex Doppler evaluation of the cervical carotid and vertebral arteries were performed. The common carotid, carotid bifurcations and cervical Internal Carotid Artery (ICA) and proximal External Carotid Artery (ECA) were evaluated. The vertebral arteries were evaluated for gross patency and flow direction. Report prepared by CASE Bernard FINDINGS: RIGHT CAROTID ARTERIES: 1. Common Carotid Artery: No significant focal plaque formation of the right common carotid artery. Maximum Peak Systolic velocity: 86 cm/sec: End-diastolic velocity 16 cm/sec. 2. Carotid Bifurcation: No significant focal plaque formation. Maximum Peak Systolic velocity: 60 cm/sec: End-diastolic velocity 16 cm/sec. 3. Internal Carotid Artery: No significant plaque Plaque description: 3.1. Proximal Segment: Peak systolic velocity 49 cm/sec: End-diastolic velocity 22 cm/sec - % stenosis 0-15% 3.2. Middle Segment: Peak systolic velocity 78 cm/sec: End-diastolic velocity 36 cm/sec - % stenosis 0-15% 3.3. Distal Segment: Peak systolic velocity 79 cm/sec: End-diastolic velocity 30 cm/sec - % stenosis 0-15% 4. External Carotid Artery: No significant focal plaque formation. Peak systolic velocity 66 cm/sec 5. ICA/CCA Ratio: 1.3 LEFT CAROTID ARTERIES: 1. Common Carotid Artery: No significant focal plaque formation of the left common carotid artery. Maximum Peak Systolic velocity: 87 cm/sec: End-diastolic velocity 19 cm/sec. 2. Carotid Bifurcation: No significant focal plaque formation. Maximum Peak Systolic velocity: 58 cm/sec: End-diastolic velocity 18 cm/sec. 3. Internal Carotid Artery: No significant plaque Plaque description: 3.1. Proximal Segment: Peak systolic velocity 51 cm/sec: End-diastolic velocity 26 cm/sec - % stenosis 0-15% 3.2. Middle Segment: Peak systolic velocity 95 cm/sec: End-diastolic velocity 38 cm/sec - % stenosis 0-15% 3.3. Distal Segment: Peak systolic velocity 44 cm/sec: End-diastolic velocity 16 cm/sec - % stenosis 0-15% 4. External Carotid Artery: No significant focal plaque formation. Peak systolic velocity 56 cm/sec 5. ICA/CCA Ratio: 1.3 VERTEBRAL ARTERIES: 1. Right Vertebral Artery: The right vertebral artery flow direction is antegrade. 2. Left Vertebral Artery: The left vertebral artery flow direction is antegrade. OTHER FINDINGS: 1. Right Brachial Blood pressure: 120 mmHg. 2. Left Brachial Blood pressure: 120 mmHg. IMPRESSION: RIGHT: Duplex scan does not suggest hemodynamically significant stenosis of the right extracranial carotid arteries. LEFT: Duplex scan does not suggest hemodynamically significant stenosis of the left extracranial carotid arteries.
[2017-11-24 15:58] VITALS: BP 116/78; TEMP 98.2; O2SAT 98
[2017-11-24 16:30] VITALS: PULSE 85
--- NOTE | 2017-11-24 17:13 | CP.PCM.PN ---
Subjective - Date & Time of Evaluation Date of Evaluation: 11/24/17 Time of Evaluation: 17:13 Objective - Vital Signs/Intake and Output Vital Signs (last 24 hours): Temp Pulse Resp BP Pulse Ox 98.2 F 85 20 116/78 98 11/24/17 15:57 11/24/17 16:26 11/24/17 15:57 11/24/17 15:57 11/24/17 15:57 Intake and Output: 11/24/17 11/24/17 06:59 18:59 Intake Total 1240 Balance 1240 - Medications Medications: Current Medications Amlodipine Besylate (Norvasc) 10 mg PO DAILY [facility] Last Admin: 11/24/17 09:52 Dose: Not Given Aspirin (Aspirin Chewable) 81 mg PO DAILY [facility] Last Admin: 11/24/17 09:52 Dose: 81 mg Enoxaparin Sodium (Lovenox) 80 mg SC DAILY [facility] Last Admin: 11/24/17 10:57 Dose: Not Given Sodium Chloride (Sodium Chloride 0.9%) 1,000 mls @ 100 mls/hr IV .Q10H [facility] Last Admin: 11/23/17 15:10 Dose: Not Given Magnesium Oxide (Mag-Ox) 400 mg PO BID [facility] Last Admin: 11/24/17 09:52 Dose: 400 mg - Labs Labs: 11/22/17 09:09 11/22/17 09:09 PT 11.9 SECONDS (9.7-12.2) 11/22/17 09:09 INR 1.1 11/22/17 09:09 APTT 32 SECONDS (21-34) 11/22/17 09:09
== END 2017-11-24 18:13 | disposition home or self-care (01) ==
LOC: C.ER 08:48 → C.9E 10:21 → C.6T 17:33
PROVIDERS: ADMIT Internal Medicine Critical Care Medicine; ATTEND Internal Medicine Critical Care Medicine
DX: G43.819 Other migraine, intractable, without status migrainosus (principal); I10 Essential (primary) hypertension
CPT/HCPCS: 36415; 70450; 70496; 70498; 70551; 71045; 80053; 80061; 81001; 82948; 83036; 84484; 84703; 85025; 85610; 85730; 86850; 86900; 93005; 93306; 93880; 96374; 97116; 97161; 97165; 97530; 99285; G0378; G8978; G8979; G8980; G8987; G8988; G8989; J1100; J1200; J3475; J7030; Q9967

== ENCOUNTER 2017-12-01 00:16 | Inpatient (IN) | payer OTHER ==
--- NOTE | 2017-12-01 01:11 | C.PDOC ---
History Of Present Illness Patient states that she was walking and felt her blood pressure "go up" and felt palpitations. NO f/c/n/v. No visual changes. Has been worked up 4 ties since october 2017 for similar complaints with negative findings. 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 denies: Chest Pain, Dyspnea Quality Of Symptoms: Rapid Heart Rate Severity: Mild Pain Scale Rating Of: 3 Exacerbating Factor(s): Pos: Other Recent travel outside of the [place]: No Additional History Per: Patient Past Medical History Reviewed: Historical Data, Nursing Documentation, Vital Signs Vital Signs: Last Vital Signs Temp 99.2 F 12/01/17 00:30 Pulse 77 12/01/17 04:51 Resp 20 12/01/17 04:51 BP 130/95 H 12/01/17 04:51 Pulse Ox 95 12/01/17 04:51 - Medical History PMH: HTN, Migraine, TIA Denies: Chronic Kidney Disease Family History: States: No Known Family Hx - Social History Hx Alcohol Use: Yes Hx Substance Use: No - Immunization History Hx Tetanus Toxoid Vaccination: No Hx Influenza Vaccination: No Hx Pneumococcal Vaccination: No Review Of Systems Constitutional: Negative for: Fever, Chills Eyes: Negative for: Vision Change ENT: Negative for: Throat Pain Cardiovascular: Negative for: Chest Pain Respiratory: Negative for: Shortness of Breath Gastrointestinal: Negative for: Nausea, Vomiting, Abdominal Pain Genitourinary: Negative for: Dysuria Musculoskeletal: Negative for: Back Pain Skin: Negative for: Rash, Lesions Neurological: Positive for: Headache, Dizziness. Negative for: Weakness, Numbness Psych: Positive for: Anxiety Physical Exam - Physical Exam Appears: Non-toxic, No Acute Distress Skin: Warm, Dry Head: Normacephalic Eye(s): bilateral: Normal Inspection Nose: Normal Oral Mucosa: Moist Neck: Supple Chest: Symmetrical Cardiovascular: Rhythm Regular Respiratory: No Rales, No Rhonchi, No Wheezing Gastrointestinal/Abdominal: Soft, No Tenderness, No Distention Back: Normal Inspection Extremity: Normal ROM Extremity: Bilateral: Atraumatic Pulses: Left Dorsalis Pedis: Normal, Right Dorsalis Pedis: Normal Neurological/Psych: Oriented x3, Normal Speech, Normal Cognition, Normal Cranial Nerves, Normal Motor, Normal Sensation, Normal Reflexes Gait: Steady ED Course And Treatment - Laboratory Results Result Diagrams: 12/01/17 01:43 12/01/17 01:43 ECG: Interpreted By Me, Viewed By Me ECG Rhythm: Sinus Rhythm, Nonspecific Changes O2 Sat by Pulse Oximetry: 98 Pulse Ox Interpretation: Normal Disposition Discussed With Dr.: Paco Aldana Comment: accepted the pt on his service and took over the care at 5:17 AM Doctor Will See Patient In The: Hospital Counseled Patient/Family Regarding: Studies Performed, Diagnosis - Disposition Disposition: HOSPITALIZED Disposition Time: 01:11 Condition: FAIR Forms: [employer] (Indonesian) - POA Present On Arrival: None - Clinical Impression Clinical Impression: Labile hypertension, Palpitations, Headache Decision To Admit - Pt Status Changed To: Hospital Disposition Of: Inpatient - Admit Certification Admit to Inpatient:: After my assessment, the patient will require hospitalization for at least two midnights. This is because of the severity of symptoms shown, intensity of services needed, and/or the medical risk in this patient being treated as an outpatient. - InPatient: Physician Admission Certification: I certify that this patient requires 2 or more midnights of care for the following reason:: After my assessment, the patient will require hospitalization for at least two midnights. This is because of the severity of symptoms shown, intensity of services needed, and/or the medical risk in this patient being treated as an outpatient. - . Bed Request Type: Telemetry Admitting Physician: Paco Aldana Patient Diagnosis: Labile hypertension, Palpitations, Headache
[2017-12-01 01:58] LABS: BASO # 0.1 K/uL (0.0-0.2); BASO % 0.7 % (0.0-2.0); EOS # 0.2 K/uL (0.0-0.7); EOS % 1.2 % (0.0-4.0); HEMOGLOBIN 14.6 g/dL (11.0-16.0); LYMPH # 1.1 K/uL (1.0-4.3); LYMPH % 8.7 % (20.0-40.0); MEAN CELL VOLUME 89.7 fL (81.0-99.0); MEAN CORPUSCULAR HEMOGLOBIN 29.9 pg (27.0-31.0); MEAN CORPUSCULAR HGB CONC 33.3 g/dL (33.0-37.0); MEAN PLATELET VOLUME 7.6 fL (7.2-11.7); MONO % 8.1 % (0.0-10.0); NEUT # 10.1 K/uL (1.8-7.0); NEUT % 81.3 % (50.0-75.0); PLATELET COUNT 307 K/uL (130-400); RBC 4.88 Mil/uL (3.80-5.20); RED CELL DISTRIBUTION WIDTH 13.7 % (11.5-14.5); SQUAMOUS EPITHIAL < 1 /hpf (0-5); URINE BACTERIA MANY (<OCC); URINE BILIRUBIN NEGATIVE (NEGATIVE); URINE BLOOD NEGATIVE (NEGATIVE); URINE CLARITY Clear (Clear); URINE COLOR Straw (YELLOW); URINE GLUCOSE (UA) NORMAL (Normal); URINE LEUKOCYTE ESTERASE TRACE Leu/uL (Negative); URINE PROTEIN NEGATIVE (NEGATIVE); URINE UROBILINOGEN NORMAL mg/dL (0.2-1.0); WHITE BLOOD COUNT 12.5 K/uL (4.8-10.8)
[2017-12-01 01:59] LABS: HCG,QUALITATIVE URINE NEGATIVE (NEGATIVE)
[2017-12-01 02:01] LABS: INR 1.2; PROTHROMBIN TIME 13.2 SECONDS (9.7-12.2)
[2017-12-01 02:24] LABS: ALB/GLOB RATIO 1.4 (1.0-2.1); ALBUMIN 4.5 g/dL (3.5-5.0); ALT/SGPT 42 U/L (9-52); AST/SGOT 39 U/L (14-36); BLOOD UREA NITROGEN 12 mg/dL (7-17); CALCIUM 9.2 mg/dl (8.6-10.4); GFR AFRICAN-AMERICAN > 60; GFR NON-AFRICAN AMERICAN > 60
[2017-12-01 02:25] LABS: EOSINOPHIL 2 % (0-4); LYMPHOCYTE 8 % (20-40); MONOCYTE 9 % (0-10); NEUTROPHIL 81 % (50-75); PLATELET ESTIMATE NORMAL (NORMAL); TOTAL CELLS COUNTED 100
--- NOTE | 2017-12-01 03:47 | CT ---
EXAM: CT Head Without Intravenous Contrast CLINICAL HISTORY: 47 years old, female; Pain; Headache; Patient HX: 5-31-18; Additional info: R/O bleed, HTN TECHNIQUE: Axial computed tomography images of the head/brain without intravenous contrast. All CT scans at this facility use one or more dose reduction techniques, viz.: automated exposure control; ma/kV adjustment per patient size (including targeted exams where dose is matched to indication; i.e. head); or iterative reconstruction technique. COMPARISON: No relevant prior studies available. FINDINGS: Brain: No intracranial hemorrhage. No mass. No definite edema. Ventricles: No hydrocephalus. Bones/joints: No acute fracture. Soft tissues: Unremarkable. Sinuses: No acute sinusitis. Mastoid air cells: No mastoid effusion. Orbits: Unremarkable as visualized. IMPRESSION: 1. No definite acute intracranial abnormality.
[2017-12-01 06:24] LABS: GFR AFRICAN-AMERICAN > 60; GFR NON-AFRICAN AMERICAN > 60
[2017-12-01 06:34] LABS: BLOOD UREA NITROGEN 10 mg/dL (7-17)
[2017-12-01 06:41] LABS: FREE T4 1.3 ng/dL (0.78-2.19)
[2017-12-01 09:06] LABS: CK-MB 0.26 ng/mL (0.0-3.38)
[2017-12-01] MEDS: Enoxaparin 40 mg Syringe SC SCH ×2 (10:37→10:41)
[2017-12-01] MEDS: Magnesium Oxide 400 mg Tab UD PO SCH ×2 (11:00→17:06)
--- NOTE | 2017-12-01 16:21 | CP.PCM.CON ---
History of Present Illness - History of Present Illness History of Present Illness: Initial Nephrology Consultation: Assessment: Stable uncontrolled hypertension r/o sec HTN Obesity pit microadenoma/prolactinoma s/p therapy with carbergoline ? stress anxiety disorder Plan Hypertension control with meds as ordered. Patient not on ACEI/ARB, will add clonidine prn for now HTN work up with renin/aldosterone and catecholaimes. also check renal artery doppler hx of headaches/muscle aches: will also check lupus anticoagulant, SCL ab and SLE labs cortisol level 12 but she received steroids last week hence should repeat in few weeks also check urine for drug screen Dose meds/antibiotics for normal GFR. Glycemic control Further work up/management as per primary team Thanks for allowing me to participate in care of your patient. Will follow patient with you. Please call if any Qs. d/w mother and team as well Dr Shreyas Bella Office: [phone] Chief Complaint; HTN and palpitations HPI: Pt is a 47 F with hx of pit microadenoma/prolactinoma s/p therapy with carbergoline, hypertension (2 years) which is mostly controlled with home SBP in 120-130s and DBP 80s range presented with complaints of palpitations with elevated BP in 180s. she was also having tingling numbnes sensation in arms, headache associated with it. now better. reports chronic SOB on exertion and sweatiness. also c/o weight gain over last 3 months Denies OTC/herbal meds or NSAIDs denies smiking/etoh/drugs/licorice/decongestants/tobacco chewing reports usual work related stress also reported muscle aches, heart burn and joint aches ROS: Cardiovascular: No chest pain. Pulmonary: No shortness of breath now Gastrointestinal: denies abdominal pain No nausea. No vomiting. Genitourinary: No pain while urinating. Denies blood in urine. All other negative Physical Examination: General Appearance: Comfortable, in no acute respiratory distress, co-operative . Vitals reviewed and noted as below Head; Atraumatic, normocephalic ENT: no ulcers no thrush. Tongue is midline. Oropharynx: no rash or ulcers. EYES: Pupils are equal, round and reactive to light accommodation. Eye muscles and extraocular movement intact. Sclera is anicteric. Neck; supple no lymphadenopathy, no thyromegaly or bruit Lungs: Normal respiratory rate/effort. Breath sounds bilateral equal and clear Heart: Normal rate. s1s2 normal. No rub or gallop. Extremities: no edema. No varicose veins Neurological: Patient is alert, awake and oriented to person, place and time. No focal deficit. Strength bilateral appropriate and equal Skin: Warm and dry. Normal turgor. No rash. Palpitation: Normal elasticity for age Abdomen: Abdomen is soft. Bowel sounds +. There is no abdominal tenderness, no guarding/rigidity no organomegaly Psych: normal insight and normal affect/mood MSK: no joint tenderness or swelling. Digits and nails normal, no deformity : kidney or bladder not palpable Labs/imaging reviewed. Past medical history, past surgical history, family history, social history, allergy reviewed and noted as below Family hx: no hx of CKD. Rest non-contributory Past Patient History - Infectious Disease Hx of Infectious Diseases: None - Past Medical History & Family History Past Medical History?: Yes - Past Social History Smoking Status: Never Smoked - CARDIAC Hx Cardiac Disorders: Yes Hx Hypertension: Yes - PULMONARY Hx Respiratory Disorders: No - NEUROLOGICAL Hx Neurological Disorder: Yes Hx Migraine: Yes Hx Transient Ischemic Attacks (TIA): Yes - HEENT Hx HEENT Problems: No - RENAL Hx Chronic Kidney Disease: No - ENDOCRINE/METABOLIC Hx Endocrine Disorders: Yes Other/Comment: pituitary adenoma. thyroid nodules - HEMATOLOGICAL/ONCOLOGICAL Hx Blood Disorders: No - INTEGUMENTARY Hx Dermatological Problems: No - MUSCULOSKELETAL/RHEUMATOLOGICAL Hx Musculoskeletal Disorders: No Hx Falls: No - GASTROINTESTINAL Hx Gastrointestinal Disorders: No - GENITOURINARY/GYNECOLOGICAL Hx Genitourinary Disorders: No - PSYCHIATRIC Hx Psychophysiologic Disorder: Yes Hx Anxiety: Yes Hx Substance Use: No - SURGICAL HISTORY Hx Surgeries: Yes Other/Comment: liposuction - ANESTHESIA Hx Anesthesia: Yes Hx Anesthesia Reactions: No Hx Malignant Hyperthermia: No Has any member of the family had a problem w/ anesthesia?: No Meds Allergies/Adverse Reactions: Allergies Allergy/AdvReac Type Severity Reaction Status Date / Time No Known Allergies Allergy Verified 12/01/17 00:30 - Medications Medications: Current Medications Amlodipine Besylate (Norvasc) 10 mg PO DAILY [facility] Last Admin: 12/01/17 10:36 Dose: 10 mg Aspirin (Aspirin Chewable) 81 mg PO DAILY [facility] Last Admin: 12/01/17 10:37 Dose: 81 mg Clonidine HCl (Catapres) 0.1 mg PO Q6 PRN PRN Reason: Other Enoxaparin Sodium (Lovenox) 40 mg SC DAILY [facility] Last Admin: 12/01/17 10:41 Dose: Not Given Magnesium Oxide (Mag-Ox) 400 mg PO BID [facility] Last Admin: 12/01/17 11:00 Dose: 400 mg Propranolol HCl (Inderal) 10 mg PO BID [facility] Last Admin: 12/01/17 11:00 Dose: 10 mg Results - Vital Signs Recent Vital Signs: Last Vital Signs Temp 98.7 F 12/01/17 15:00 Pulse 79 12/01/17 15:00 Resp 20 12/01/17 15:00 BP 132/88 12/01/17 15:00 Pulse Ox 100 12/01/17 15:00 - Labs Result Diagrams: 12/01/17 01:43 12/01/17 05:54 Labs: Laboratory Results - last 24 hr 12/01/17 12/01/17 12/01/17 01:43 01:43 01:43 WBC 12.5 H D RBC 4.88 Hgb 14.6 Hct 43.7 MCV 89.7 MCH 29.9 MCHC 33.3 RDW 13.7 Plt Count 307 MPV 7.6 Neut % (Auto) 81.3 H Lymph % (Auto) 8.7 L [place] % (Auto) 8.1 Eos % (Auto) 1.2 Baso % (Auto) 0.7 Neut # (Auto) 10.1 H Lymph # (Auto) 1.1 [place] # (Auto) 1.0 H Eos # (Auto) 0.2 Baso # (Auto) 0.1 Neutrophils % (Manual) 81 H Lymphocytes % (Manual) 8 L Monocytes % (Manual) 9 Eosinophils % (Manual) 2 Platelet Estimate Normal PT 13.2 H INR 1.2 APTT 36 H Sodium 140 Potassium 5.5 H Chloride 104 Carbon Dioxide 25 Anion Gap 17 BUN 12 Creatinine 0.8 Est GFR ( Amer) > 60 Est GFR (Non-Af Amer) > 60 Random Glucose 96 Calcium 9.2 Magnesium 2.2 Total Bilirubin 1.3 AST 39 H D ALT 42 Alkaline Phosphatase 59 Total Creatine Kinase CK-MB (Mass) Troponin I Total Protein 7.9 Albumin 4.5 Globulin 3.3 Albumin/Globulin Ratio 1.4 Free T4 TSH 3rd Generation 1.52 Cortisol AM Sample Urine Color Urine Clarity Urine pH Ur Specific [place] Urine Protein Urine Glucose (UA) Urine Ketones Urine Blood Urine Nitrate Urine Bilirubin Urine Urobilinogen Ur Leukocyte Esterase Urine WBC (Auto) Urine RBC (Auto) Ur Squamous Epith Cells Urine Bacteria Urine HCG, Qual 12/01/17 12/01/17 12/01/17 01:43 05:54 05:54 WBC RBC Hgb Hct MCV MCH MCHC RDW Plt Count MPV Neut % (Auto) Lymph % (Auto) [place] % (Auto) Eos % (Auto) Baso % (Auto) Neut # (Auto) Lymph # (Auto) [place] # (Auto) Eos # (Auto) Baso # (Auto) Neutrophils % (Manual) Lymphocytes % (Manual) Monocytes % (Manual) Eosinophils % (Manual) Platelet Estimate PT INR APTT Sodium Potassium Chloride Carbon Dioxide Anion Gap BUN Creatinine Est GFR ( Amer) Est GFR (Non-Af Amer) Random Glucose Calcium Magnesium Total Bilirubin AST ALT Alkaline Phosphatase Total Creatine Kinase CK-MB (Mass) Troponin I Total Protein Albumin Globulin Albumin/Globulin Ratio Free T4 1.30 TSH 3rd Generation 1.61 Cortisol AM Sample 12.0 Urine Color Straw Urine Clarity Clear Urine pH 7.0 Ur Specific [place] 1.003 Urine Protein Negative Urine Glucose (UA) Normal Urine Ketones Negative Urine Blood Negative Urine Nitrate Negative Urine Bilirubin Negative Urine Urobilinogen Normal Ur Leukocyte Esterase Trace Urine WBC (Auto) 1 Urine RBC (Auto) < 1 Ur Squamous Epith Cells < 1 Urine Bacteria Many H Urine HCG, Qual Negative 12/01/17 05:54 WBC RBC Hgb Hct MCV MCH MCHC RDW Plt Count MPV Neut % (Auto) Lymph % (Auto) [place] % (Auto) Eos % (Auto) Baso % (Auto) Neut # (Auto) Lymph # (Auto) [place] # (Auto) Eos # (Auto) Baso # (Auto) Neutrophils % (Manual) Lymphocytes % (Manual) Monocytes % (Manual) Eosinophils % (Manual) Platelet Estimate PT INR APTT Sodium 140 Potassium 4.5 Chloride 105 Carbon Dioxide 25 Anion Gap 15 BUN 10 Creatinine 0.7 Est GFR ( Amer) > 60 Est GFR (Non-Af Amer) > 60 Random Glucose 88 Calcium 9.0 Magnesium Total Bilirubin AST ALT Alkaline Phosphatase Total Creatine Kinase 83 CK-MB (Mass) 0.26 Troponin I 0.0160 Total Protein Albumin Globulin Albumin/Globulin Ratio Free T4 TSH 3rd Generation Cortisol AM Sample Urine Color Urine Clarity Urine pH Ur Specific [place] Urine Protein Urine Glucose (UA) Urine Ketones Urine Blood Urine Nitrate Urine Bilirubin Urine Urobilinogen Ur Leukocyte Esterase Urine WBC (Auto) Urine RBC (Auto) Ur Squamous Epith Cells Urine Bacteria Urine HCG, Qual
--- NOTE | 2017-12-01 16:47 | CP.PCM.HP ---
Past Patient History - Infectious Disease Hx of Infectious Diseases: None - Past Medical History & Family History Past Medical History?: Yes - Past Social History Smoking Status: Never Smoked - CARDIAC Hx Cardiac Disorders: Yes Hx Hypertension: Yes - PULMONARY Hx Respiratory Disorders: No - NEUROLOGICAL Hx Neurological Disorder: Yes Hx Migraine: Yes Hx Transient Ischemic Attacks (TIA): Yes - HEENT Hx HEENT Problems: No - RENAL Hx Chronic Kidney Disease: No - ENDOCRINE/METABOLIC Hx Endocrine Disorders: Yes Other/Comment: pituitary adenoma. thyroid nodules - HEMATOLOGICAL/ONCOLOGICAL Hx Blood Disorders: No - INTEGUMENTARY Hx Dermatological Problems: No - MUSCULOSKELETAL/RHEUMATOLOGICAL Hx Musculoskeletal Disorders: No Hx Falls: No - GASTROINTESTINAL Hx Gastrointestinal Disorders: No - GENITOURINARY/GYNECOLOGICAL Hx Genitourinary Disorders: No - PSYCHIATRIC Hx Psychophysiologic Disorder: Yes Hx Anxiety: Yes Hx Substance Use: No - SURGICAL HISTORY Hx Surgeries: Yes Other/Comment: liposuction - ANESTHESIA Hx Anesthesia: Yes Hx Anesthesia Reactions: No Hx Malignant Hyperthermia: No Has any member of the family had a problem w/ anesthesia?: No Meds Allergies/Adverse Reactions: Allergies Allergy/AdvReac Type Severity Reaction Status Date / Time No Known Allergies Allergy Verified 12/01/17 00:30 Results - Vital Signs Recent Vital Signs: Last Vital Signs Temp 98.7 F 12/01/17 15:00 Pulse 80 12/01/17 16:31 Resp 20 12/01/17 15:00 BP 132/88 12/01/17 15:00 Pulse Ox 100 12/01/17 15:00 - Labs Result Diagrams: 12/01/17 01:43 12/01/17 05:54 Labs: Laboratory Results - last 24 hr 12/01/17 12/01/17 12/01/17 01:43 01:43 01:43 WBC 12.5 H D RBC 4.88 Hgb 14.6 Hct 43.7 MCV 89.7 MCH 29.9 MCHC 33.3 RDW 13.7 Plt Count 307 MPV 7.6 Neut % (Auto) 81.3 H Lymph % (Auto) 8.7 L [place] % (Auto) 8.1 Eos % (Auto) 1.2 Baso % (Auto) 0.7 Neut # (Auto) 10.1 H Lymph # (Auto) 1.1 [place] # (Auto) 1.0 H Eos # (Auto) 0.2 Baso # (Auto) 0.1 Neutrophils % (Manual) 81 H Lymphocytes % (Manual) 8 L Monocytes % (Manual) 9 Eosinophils % (Manual) 2 Platelet Estimate Normal PT 13.2 H INR 1.2 APTT 36 H Sodium 140 Potassium 5.5 H Chloride 104 Carbon Dioxide 25 Anion Gap 17 BUN 12 Creatinine 0.8 Est GFR ( Amer) > 60 Est GFR (Non-Af Amer) > 60 Random Glucose 96 Calcium 9.2 Magnesium 2.2 Total Bilirubin 1.3 AST 39 H D ALT 42 Alkaline Phosphatase 59 Total Creatine Kinase CK-MB (Mass) Troponin I Total Protein 7.9 Albumin 4.5 Globulin 3.3 Albumin/Globulin Ratio 1.4 Free T4 TSH 3rd Generation 1.52 Cortisol AM Sample Urine Color Urine Clarity Urine pH Ur Specific [place] Urine Protein Urine Glucose (UA) Urine Ketones Urine Blood Urine Nitrate Urine Bilirubin Urine Urobilinogen Ur Leukocyte Esterase Urine WBC (Auto) Urine RBC (Auto) Ur Squamous Epith Cells Urine Bacteria Urine HCG, Qual 12/01/17 12/01/17 12/01/17 01:43 05:54 05:54 WBC RBC Hgb Hct MCV MCH MCHC RDW Plt Count MPV Neut % (Auto) Lymph % (Auto) [place] % (Auto) Eos % (Auto) Baso % (Auto) Neut # (Auto) Lymph # (Auto) [place] # (Auto) Eos # (Auto) Baso # (Auto) Neutrophils % (Manual) Lymphocytes % (Manual) Monocytes % (Manual) Eosinophils % (Manual) Platelet Estimate PT INR APTT Sodium Potassium Chloride Carbon Dioxide Anion Gap BUN Creatinine Est GFR ( Amer) Est GFR (Non-Af Amer) Random Glucose Calcium Magnesium Total Bilirubin AST ALT Alkaline Phosphatase Total Creatine Kinase CK-MB (Mass) Troponin I Total Protein Albumin Globulin Albumin/Globulin Ratio Free T4 1.30 TSH 3rd Generation 1.61 Cortisol AM Sample 12.0 Urine Color Straw Urine Clarity Clear Urine pH 7.0 Ur Specific [place] 1.003 Urine Protein Negative Urine Glucose (UA) Normal Urine Ketones Negative Urine Blood Negative Urine Nitrate Negative Urine Bilirubin Negative Urine Urobilinogen Normal Ur Leukocyte Esterase Trace Urine WBC (Auto) 1 Urine RBC (Auto) < 1 Ur Squamous Epith Cells < 1 Urine Bacteria Many H Urine HCG, Qual Negative 12/01/17 05:54 WBC RBC Hgb Hct MCV MCH MCHC RDW Plt Count MPV Neut % (Auto) Lymph % (Auto) [place] % (Auto) Eos % (Auto) Baso % (Auto) Neut # (Auto) Lymph # (Auto) [place] # (Auto) Eos # (Auto) Baso # (Auto) Neutrophils % (Manual) Lymphocytes % (Manual) Monocytes % (Manual) Eosinophils % (Manual) Platelet Estimate PT INR APTT Sodium 140 Potassium 4.5 Chloride 105 Carbon Dioxide 25 Anion Gap 15 BUN 10 Creatinine 0.7 Est GFR ( Amer) > 60 Est GFR (Non-Af Amer) > 60 Random Glucose 88 Calcium 9.0 Magnesium Total Bilirubin AST ALT Alkaline Phosphatase Total Creatine Kinase 83 CK-MB (Mass) 0.26 Troponin I 0.0160 Total Protein Albumin Globulin Albumin/Globulin Ratio Free T4 TSH 3rd Generation Cortisol AM Sample Urine Color Urine Clarity Urine pH Ur Specific [place] Urine Protein Urine Glucose (UA) Urine Ketones Urine Blood Urine Nitrate Urine Bilirubin Urine Urobilinogen Ur Leukocyte Esterase Urine WBC (Auto) Urine RBC (Auto) Ur Squamous Epith Cells Urine Bacteria Urine HCG, Qual
[2017-12-01 17:33] LABS: CK-MB 0.23 ng/mL (0.0-3.38)
[2017-12-01 23:29] LABS: BARBITURATES, UR NEGATIVE (NEGATIVE); BENZODIAZEPINES, UR NEGATIVE (NEGATIVE); OPIATES, UR NEGATIVE (NEGATIVE); PHENCYCLIDINE, UR NEGATIVE (NEGATIVE)
[2017-12-02] MEDS: Magnesium Oxide 400 mg Tab UD PO SCH ×2 (09:42→17:06)
[2017-12-02] MEDS: Enoxaparin 40 mg Syringe SC SCH (09:42)
--- NOTE | 2017-12-02 12:15 | CP.PCM.PN ---
Subjective - Date & Time of Evaluation Date of Evaluation: 12/02/17 Time of Evaluation: 12:09 - Subjective Subjective: Nephrology Consultation Note: Assessment: Stable uncontrolled hypertension now better r/o sec HTN Obesity pit microadenoma/prolactinoma s/p therapy with carbergoline migraine headaches ? stress anxiety disorder Plan Hypertension control with meds as ordered. Patient not on ACEI/ARB, added clonidine prn for now pending work up for secondary HTN HTN work up with renin/aldosterone and catecholamines sent. results on renal artery doppler pending hx of headaches/muscle aches: sent lupus anticoagulant, SCL ab and SLE labs cortisol level 12 but she received steroids last week hence should repeat in few weeks after 1 mg dexamethasone urine for drug screen: negative Dose meds/antibiotics for normal GFR. Glycemic control Further work up/management as per primary team pt stable for d/c from renal perspective when planned. pt was advised to f/up in 1 week in office. Thanks for allowing me to participate in care of your patient. Will follow patient with you. Please call if any Qs. d/w mother and team as well Dr Shreyas Bella Office: [phone] Chief Complaint; HTN and palpitations HPI: Pt is a 47 F with hx of pit microadenoma/prolactinoma s/p therapy with carbergoline, hypertension (2 years) which is mostly controlled with home SBP in 120-130s and DBP 80s range presented with complaints of palpitations with elevated BP in 180s. she was also having tingling numbnes sensation in arms, headache associated with it. now better. reports chronic SOB on exertion and sweatiness. also c/o weight gain over last 3 months Denies OTC/herbal meds or NSAIDs denies smiking/etoh/drugs/licorice/decongestants/tobacco chewing reports usual work related stress also reported muscle aches, heart burn and joint aches ROS: Cardiovascular: No chest pain. Pulmonary: No shortness of breath now Gastrointestinal: denies abdominal pain No nausea. No vomiting. Genitourinary: No pain while urinating. Denies blood in urine. All other negative except morning headaches and as mentioned in HPI Physical Examination: General Appearance: Comfortable, in no acute respiratory distress, co-operative . Vitals reviewed and noted as below Head; Atraumatic, normocephalic ENT: no ulcers no thrush. Tongue is midline. Oropharynx: no rash or ulcers. EYES: Pupils are equal, round and reactive to light accommodation. Eye muscles and extraocular movement intact. Sclera is anicteric. Neck; supple no lymphadenopathy, no thyromegaly or bruit Lungs: Normal respiratory rate/effort. Breath sounds bilateral equal and clear Heart: Normal rate. s1s2 normal. No rub or gallop. Extremities: no edema. No varicose veins Neurological: Patient is alert, awake and oriented to person, place and time. No focal deficit. Strength bilateral appropriate and equal Skin: Warm and dry. Normal turgor. No rash. Palpitation: Normal elasticity for age Abdomen: Abdomen is soft. Bowel sounds +. There is no abdominal tenderness, no guarding/rigidity no organomegaly Psych: normal insight and normal affect/mood MSK: no joint tenderness or swelling. Digits and nails normal, no deformity : kidney or bladder not palpable Labs/imaging reviewed. Past medical history, past surgical history, family history, social history, allergy reviewed and noted as below Family hx: no hx of CKD. Rest non-contributory echo: normal LV function and thickness, no pulm HTN or valv insuff UA no blood or protein Objective - Vital Signs/Intake and Output Vital Signs (last 24 hours): Temp Pulse Resp BP Pulse Ox 98.2 F 67 20 114/77 99 12/02/17 07:00 12/02/17 07:50 12/02/17 07:00 12/02/17 07:00 12/02/17 07:00 Intake and Output: 12/02/17 12/02/17 06:59 18:59 Intake Total 800 Balance 800 - Medications Medications: Current Medications Amlodipine Besylate (Norvasc) 10 mg PO DAILY [facility] Last Admin: 12/02/17 09:42 Dose: 10 mg Aspirin (Aspirin Chewable) 81 mg PO DAILY [facility] Last Admin: 12/02/17 09:42 Dose: 81 mg Clonidine HCl (Catapres) 0.1 mg PO Q6 PRN PRN Reason: Other Enoxaparin Sodium (Lovenox) 40 mg SC DAILY [facility] Last Admin: 12/02/17 09:42 Dose: Not Given Magnesium Oxide (Mag-Ox) 400 mg PO BID [facility] Last Admin: 12/02/17 09:42 Dose: 400 mg Propranolol HCl (Inderal) 10 mg PO BID [facility] Last Admin: 12/02/17 09:42 Dose: 10 mg - Labs Labs: 12/01/17 01:43 12/01/17 05:54 PT 13.2 SECONDS (9.7-12.2) H 12/01/17 01:43 INR 1.2 12/01/17 01:43 APTT 36 SECONDS (21-34) H 12/01/17 01:43
--- NOTE | 2017-12-02 13:34 | VASCLAB ---
PROCEDURE: Renal Artery Duplex Scan HISTORY: Uncontrolled HTN r/o TY COMPARISON: None available. TECHNIQUE: Real-time ultrasonography evaluation of the renal arteries were performed. Comparison is made to the aorta. Report prepared by CASE Bernard FINDINGS: AORTA: Patent. Peak systolic velocity 90 centimeters/second RIGHT RENAL ARTERY: Renal artery to aorta ratio: 1.6 * Proximal segment: Patent. Peak systolic velocity 149 centimeters/second * Mid segment: Patent. Peak systolic velocity 81 centimeters/second * Distal segment: Patent. Peak systolic velocity 63 centimeters/second Other findings: Right Kidney measures approximately 10.29 centimeters. LEFT RENAL ARTERY: Renal artery to aorta ratio: 1.1 * Proximal segment: Patent. Peak systolic velocity 97 centimeters/second * Mid segment: Patent. Peak systolic velocity 69 centimeters/second * Distal segment: Patent. Peak systolic velocity 81 centimeters/second Other findings: Left Kidney measures approximately 10.97 centimeters. IMPRESSION: 1. No definite hemodynamically significant stenosis involving the renal arteries as visualized. 2. Patent bilateral renal arteries.
--- NOTE | 2017-12-02 19:04 | CP.PCM.PN ---
Subjective - Date & Time of Evaluation Date of Evaluation: 12/02/17 Time of Evaluation: 19:04 Objective - Vital Signs/Intake and Output Vital Signs (last 24 hours): Temp Pulse Resp BP Pulse Ox 98.5 F 71 20 110/75 97 12/02/17 15:00 12/02/17 16:22 12/02/17 15:00 12/02/17 15:00 12/02/17 15:00 - Medications Medications: Current Medications Amlodipine Besylate (Norvasc) 10 mg PO DAILY [facility] Last Admin: 12/02/17 09:42 Dose: 10 mg Aspirin (Aspirin Chewable) 81 mg PO DAILY [facility] Last Admin: 12/02/17 09:42 Dose: 81 mg Clonidine HCl (Catapres) 0.1 mg PO Q6 PRN PRN Reason: Other Enoxaparin Sodium (Lovenox) 40 mg SC DAILY [facility] Last Admin: 12/02/17 09:42 Dose: Not Given Magnesium Oxide (Mag-Ox) 400 mg PO BID [facility] Last Admin: 12/02/17 17:06 Dose: 400 mg Propranolol HCl (Inderal) 10 mg PO BID [facility] Last Admin: 12/02/17 17:06 Dose: 10 mg - Labs Labs: 12/01/17 01:43 12/01/17 05:54 PT 13.2 SECONDS (9.7-12.2) H 12/01/17 01:43 INR 1.2 12/01/17 01:43 APTT 36 SECONDS (21-34) H 12/01/17 01:43
--- NOTE | 2017-12-02 19:31 | CARD ---
APPROVED REPORT EKG Measurement Heart [id number] <Conclusion> Normal sinus rhythm Normal Electrocardiogram
--- NOTE | 2017-12-02 22:27 | CP.PCM.CON ---
History of Present Illness - History of Present Illness History of Present Illness: Patient seen and evaluated Comfortable Denies chest pain and dyspnea HTN mgt by Nephrology Past Patient History - Infectious Disease Hx of Infectious Diseases: None - Past Medical History & Family History Past Medical History?: Yes - Past Social History Smoking Status: Never Smoked - CARDIAC Hx Cardiac Disorders: Yes Hx Hypertension: Yes - PULMONARY Hx Respiratory Disorders: No - NEUROLOGICAL Hx Neurological Disorder: Yes Hx Migraine: Yes Hx Transient Ischemic Attacks (TIA): Yes - HEENT Hx HEENT Problems: No - RENAL Hx Chronic Kidney Disease: No - ENDOCRINE/METABOLIC Hx Endocrine Disorders: Yes Other/Comment: pituitary adenoma. thyroid nodules - HEMATOLOGICAL/ONCOLOGICAL Hx Blood Disorders: No - INTEGUMENTARY Hx Dermatological Problems: No - MUSCULOSKELETAL/RHEUMATOLOGICAL Hx Musculoskeletal Disorders: No Hx Falls: No - GASTROINTESTINAL Hx Gastrointestinal Disorders: No - GENITOURINARY/GYNECOLOGICAL Hx Genitourinary Disorders: No - PSYCHIATRIC Hx Psychophysiologic Disorder: Yes Hx Anxiety: Yes Hx Substance Use: No - SURGICAL HISTORY Hx Surgeries: Yes Other/Comment: liposuction - ANESTHESIA Hx Anesthesia: Yes Hx Anesthesia Reactions: No Hx Malignant Hyperthermia: No Has any member of the family had a problem w/ anesthesia?: No Meds Allergies/Adverse Reactions: Allergies Allergy/AdvReac Type Severity Reaction Status Date / Time No Known Allergies Allergy Verified 12/01/17 00:30 - Medications Medications: Current Medications Amlodipine Besylate (Norvasc) 10 mg PO DAILY [facility] Last Admin: 12/02/17 09:42 Dose: 10 mg Aspirin (Aspirin Chewable) 81 mg PO DAILY [facility] Last Admin: 12/02/17 09:42 Dose: 81 mg Clonidine HCl (Catapres) 0.1 mg PO Q6 PRN PRN Reason: Other Enoxaparin Sodium (Lovenox) 40 mg SC DAILY [facility] Last Admin: 12/02/17 09:42 Dose: Not Given Magnesium Oxide (Mag-Ox) 400 mg PO BID [facility] Last Admin: 12/02/17 17:06 Dose: 400 mg Propranolol HCl (Inderal) 10 mg PO BID [facility] Last Admin: 12/02/17 17:06 Dose: 10 mg Results - Vital Signs Recent Vital Signs: Last Vital Signs Temp 98.5 F 12/02/17 15:00 Pulse 80 12/02/17 20:33 Resp 20 12/02/17 15:00 BP 110/75 12/02/17 15:00 Pulse Ox 97 12/02/17 15:00 - Labs Result Diagrams: 12/01/17 01:43 12/01/17 05:54 Labs: Laboratory Results - last 24 hr 12/01/17 21:00 Urine Opiates Screen Negative Urine Methadone Screen Negative Ur Barbiturates Screen Negative Ur Phencyclidine Scrn Negative Ur Amphetamines Screen Negative U Benzodiazepines Scrn Negative U Oth Cocaine Metabols Negative U Cannabinoids Screen Negative
[2017-12-03] MEDS: Enoxaparin 40 mg Syringe SC SCH (09:09)
[2017-12-03] MEDS: Magnesium Oxide 400 mg Tab UD PO SCH ×2 (09:09→18:45)
--- NOTE | 2017-12-03 14:52 | CP.PCM.PN ---
Subjective - Date & Time of Evaluation Date of Evaluation: 12/03/17 Time of Evaluation: 14:50 - Subjective Subjective: Nephrology Consultation Note: Assessment: Stable uncontrolled hypertension now better r/o sec HTN Obesity pit microadenoma/prolactinoma s/p therapy with carbergoline migraine headaches ? stress anxiety disorder Plan Hypertension control with meds as ordered. Patient not on ACEI/ARB, continue with clonidine prn for now pending work up for secondary HTN. will switch propanolol to labetalol 200 mg bid HTN work up with renin/aldosterone and catecholamines sent. results on renal artery doppler pending. check CT adrenals hx of headaches/muscle aches: sent lupus anticoagulant, SCL ab and SLE labs cortisol level 12 but she received steroids last week hence should repeat in few weeks after 1 mg dexamethasone urine for drug screen: negative neurology for headache management Dose meds/antibiotics for normal GFR. Glycemic control Further work up/management as per primary team Thanks for allowing me to participate in care of your patient. Will follow patient with you. Please call if any Qs. d/w mother and team as well Dr Shreyas Bella Office: [phone] Chief Complaint; HTN and palpitations HPI: Pt is a 47 F with hx of pit microadenoma/prolactinoma s/p therapy with carbergoline, hypertension (2 years) which is mostly controlled with home SBP in 120-130s and DBP 80s range presented with complaints of palpitations with elevated BP in 180s. she was also having tingling numbnes sensation in arms, headache associated with it. now better. reports chronic SOB on exertion and sweatiness. also c/o weight gain over last 3 months Denies OTC/herbal meds or NSAIDs denies smiking/etoh/drugs/licorice/decongestants/tobacco chewing reports usual work related stress also reported muscle aches, heart burn and joint aches ROS: noted overnight events. symptoms recurred with headaches, high BP and pt also felt shaking/tremors in legs All other negative except morning headaches and as mentioned in HPI Physical Examination: General Appearance: Comfortable, in no acute respiratory distress, co-operative . Vitals reviewed and noted as below Head; Atraumatic, normocephalic ENT: no ulcers no thrush. Tongue is midline. Oropharynx: no rash or ulcers. EYES: Pupils are equal, round and reactive to light accommodation. Eye muscles and extraocular movement intact. Sclera is anicteric. Neck; supple no lymphadenopathy, no thyromegaly or bruit Lungs: Normal respiratory rate/effort. Breath sounds bilateral equal and clear Heart: Normal rate. s1s2 normal. No rub or gallop. Extremities: no edema. No varicose veins Neurological: Patient is alert, awake and oriented to person, place and time. No focal deficit. Strength bilateral appropriate and equal Skin: Warm and dry. Normal turgor. No rash. Palpitation: Normal elasticity for age Abdomen: Abdomen is soft. Bowel sounds +. There is no abdominal tenderness, no guarding/rigidity no organomegaly Psych: normal insight and normal affect/mood MSK: no joint tenderness or swelling. Digits and nails normal, no deformity : kidney or bladder not palpable Labs/imaging reviewed. Past medical history, past surgical history, family history, social history, allergy reviewed and noted as below Family hx: no hx of CKD. Rest non-contributory echo: normal LV function and thickness, no pulm HTN or valv insuff UA no blood or protein Objective - Vital Signs/Intake and Output Vital Signs (last 24 hours): Temp Pulse Resp BP Pulse Ox 98.1 F 81 20 126/88 100 12/03/17 08:00 12/03/17 08:00 12/03/17 08:00 12/03/17 08:00 12/03/17 08:00 Intake and Output: 12/03/17 12/03/17 06:59 18:59 Intake Total 1000 Balance 1000 - Medications Medications: Current Medications Amlodipine Besylate (Norvasc) 10 mg PO DAILY [facility] Last Admin: 12/03/17 09:09 Dose: 10 mg Aspirin (Aspirin Chewable) 81 mg PO DAILY [facility] Last Admin: 12/03/17 09:09 Dose: 81 mg Clonidine HCl (Catapres) 0.1 mg PO Q6 PRN PRN Reason: Other Last Admin: 12/03/17 02:10 Dose: 0.1 mg Enoxaparin Sodium (Lovenox) 40 mg SC DAILY [facility] Last Admin: 12/03/17 09:09 Dose: Not Given Labetalol HCl (Trandate) 200 mg PO BID [facility] Magnesium Oxide (Mag-Ox) 400 mg PO BID [facility] Last Admin: 12/03/17 09:09 Dose: 400 mg - Labs Labs: 12/01/17 01:43 12/01/17 05:54 PT 13.2 SECONDS (9.7-12.2) H 12/01/17 01:43 INR 1.2 12/01/17 01:43 APTT 36 SECONDS (21-34) H 12/01/17 01:43
[2017-12-04 08:09] VITALS: O2SAT 98
--- NOTE | 2017-12-04 08:37 | CP.PCM.PN ---
Subjective - Date & Time of Evaluation Date of Evaluation: 12/03/17 Time of Evaluation: 15:15 - Subjective Subjective: Patient seen and evaluated No acute events noted Objective - Vital Signs/Intake and Output Vital Signs (last 24 hours): Temp Pulse Resp BP Pulse Ox 98.5 F 72 20 106/70 98 12/04/17 07:00 12/04/17 07:00 12/04/17 07:00 12/04/17 07:00 12/04/17 07:00 Intake and Output: 12/04/17 12/04/17 06:59 18:59 Intake Total 240 Balance 240 - Medications Medications: Current Medications Amlodipine Besylate (Norvasc) 10 mg PO DAILY [facility] Last Admin: 12/03/17 09:09 Dose: 10 mg Aspirin (Aspirin Chewable) 81 mg PO DAILY [facility] Last Admin: 12/03/17 09:09 Dose: 81 mg Clonidine HCl (Catapres) 0.1 mg PO Q6 PRN PRN Reason: Other Last Admin: 12/03/17 02:10 Dose: 0.1 mg Enoxaparin Sodium (Lovenox) 40 mg SC DAILY [facility] Last Admin: 12/03/17 09:09 Dose: Not Given Labetalol HCl (Trandate) 200 mg PO BID [facility] Last Admin: 12/03/17 22:26 Dose: 200 mg Magnesium Oxide (Mag-Ox) 400 mg PO BID [facility] Last Admin: 12/03/17 18:45 Dose: 400 mg - Labs Labs: 12/01/17 01:43 12/01/17 05:54 PT 13.2 SECONDS (9.7-12.2) H 12/01/17 01:43 INR 1.2 12/01/17 01:43 APTT 36 SECONDS (21-34) H 12/01/17 01:43
[2017-12-04] MEDS: Magnesium Oxide 400 mg Tab UD PO SCH ×2 (09:35→18:10)
[2017-12-04] MEDS: Enoxaparin 40 mg Syringe SC SCH (09:35)
--- NOTE | 2017-12-04 11:41 | CT ---
PROCEDURE: CT Abdomen and Pelvis without intravenous contrast HISTORY: evaluate for adrenal adenoma/mass COMPARISON: None. TECHNIQUE: Axial and reformatted coronal and sagittal CT images of the abdomen and pelvis were obtained without IV or oral contrast administration.. Contrast dose: 0 Radiation dose: Total exam DLP = 786.54 mGy-cm. This CT exam was performed using one or more of the following dose reduction techniques: Automated exposure control, adjustment of the mA and/or kV according to patient size, and/or use of iterative reconstruction technique. FINDINGS: LOWER THORAX: Unremarkable. LIVER: Unremarkable. No gross lesion or ductal dilatation. GALLBLADDER AND BILE DUCTS: Unremarkable. PANCREAS: Unremarkable. No gross lesion or ductal dilatation. SPLEEN: Unremarkable. ADRENALS: There is 9.5 millimeter low-attenuation nodule at the left adrenal gland may represent benign adenoma. The right adrenal gland is grossly unremarkable. KIDNEYS AND URETERS: Unremarkable. No hydronephrosis. No solid mass. VASCULATURE: Unremarkable. No aortic aneurysm. BOWEL: Unremarkable. No obstruction. No gross mural thickening. APPENDIX: No evidence of appendicitis. PERITONEUM: Unremarkable. No free fluid. No free air. LYMPH NODES: Unremarkable. No enlarged lymph nodes. BLADDER: Unremarkable. REPRODUCTIVE: The uterus and adnexa are mildly enlarged. The uterus is heterogeneous may contains fibroids. BONES: No acute fracture. OTHER FINDINGS: None. IMPRESSION: 9.5 millimeter low-attenuation nodule at the left adrenal gland may represent benign adenoma. No evidence of acute pathology in the abdomen and pelvis. Enlarged uterus may contains fibroids. If clinically warranted further assessment by ultrasound may be obtained.
[2017-12-04 11:57] LABS: BASO % 0.5 % (0.0-2.0); EOS # 0.1 K/uL (0.0-0.7); EOS % 1.5 % (0.0-4.0); HEMOGLOBIN 14.2 g/dL (11.0-16.0); LYMPH # 0.9 K/uL (1.0-4.3); LYMPH % 11.8 % (20.0-40.0); MEAN CELL VOLUME 90.8 fL (81.0-99.0); MEAN CORPUSCULAR HEMOGLOBIN 30.6 pg (27.0-31.0); MEAN CORPUSCULAR HGB CONC 33.7 g/dL (33.0-37.0); MEAN PLATELET VOLUME 7.9 fL (7.2-11.7); MONO # 0.7 K/uL (0.0-0.8); MONO % 9.2 % (0.0-10.0); NRBC % 0.1 % (0.0-2.0); RBC 4.65 Mil/uL (3.80-5.20); RED CELL DISTRIBUTION WIDTH 13.7 % (11.5-14.5); WHITE BLOOD COUNT 7.8 K/uL (4.8-10.8)
[2017-12-04 12:12] LABS: BLOOD UREA NITROGEN 11 mg/dL (7-17); CALCIUM 9.5 mg/dl (8.6-10.4); GFR AFRICAN-AMERICAN > 60; GFR NON-AFRICAN AMERICAN > 60
--- NOTE | 2017-12-04 15:58 | CP.PCM.PN ---
Subjective - Date & Time of Evaluation Date of Evaluation: 12/04/17 Time of Evaluation: 15:58 Objective - Vital Signs/Intake and Output Vital Signs (last 24 hours): Temp Pulse Resp BP Pulse Ox 98.5 F 77 20 106/70 98 12/04/17 07:00 12/04/17 07:39 12/04/17 07:00 12/04/17 07:00 12/04/17 07:00 Intake and Output: 12/04/17 12/04/17 06:59 18:59 Intake Total 240 Balance 240 - Medications Medications: Current Medications Amlodipine Besylate (Norvasc) 10 mg PO DAILY [facility] Last Admin: 12/04/17 09:35 Dose: 10 mg Aspirin (Aspirin Chewable) 81 mg PO DAILY [facility] Last Admin: 12/04/17 09:35 Dose: 81 mg Clonidine HCl (Catapres) 0.1 mg PO Q6 PRN PRN Reason: Other Last Admin: 12/03/17 02:10 Dose: 0.1 mg Enoxaparin Sodium (Lovenox) 40 mg SC DAILY [facility] Last Admin: 12/04/17 09:35 Dose: Not Given Labetalol HCl (Trandate) 200 mg PO BID [facility] Last Admin: 12/04/17 09:35 Dose: 200 mg Magnesium Oxide (Mag-Ox) 400 mg PO BID [facility] Last Admin: 12/04/17 09:35 Dose: 400 mg - Labs Labs: 12/04/17 11:46 12/04/17 11:46 PT 13.2 SECONDS (9.7-12.2) H 12/01/17 01:43 INR 1.2 12/01/17 01:43 APTT 36 SECONDS (21-34) H 12/01/17 01:43
--- NOTE | 2017-12-04 21:49 | CP.PCM.PN ---
Subjective - Date & Time of Evaluation Date of Evaluation: 12/04/17 Time of Evaluation: 21:48 - Subjective Subjective: renal follow up note Assessment: Stable uncontrolled hypertension now better r/o sec HTN Obesity pit microadenoma/prolactinoma s/p therapy with carbergoline migraine headaches ? stress anxiety disorder Plan Hypertension control with meds as ordered. continue current meds. renal artery doppler normal HTN work up with renin/aldosterone and catecholamines sent. pending CT adrenals hx of headaches/muscle aches: pending lupus anticoagulant, SCL ab and SLE labs cortisol level 12 but she received steroids last week hence should repeat in few weeks after 1 mg dexamethasone urine for drug screen: negative neurology for headache management Physical Examination: General Appearance: Comfortable, in no acute respiratory distress, co-operative . Vitals reviewed and noted as below Head; Atraumatic, normocephalic ENT: no ulcers no thrush. Tongue is midline. Oropharynx: no rash or ulcers. EYES: Pupils are equal, round and reactive to light accommodation. Eye muscles and extraocular movement intact. Sclera is anicteric. Neck; supple no lymphadenopathy, no thyromegaly or bruit Lungs: Normal respiratory rate/effort. Breath sounds bilateral equal and clear Heart: Normal rate. s1s2 normal. No rub or gallop. Extremities: no edema. No varicose veins Neurological: Patient is alert, awake and oriented to person, place and time. No focal deficit. Strength bilateral appropriate and equal Skin: Warm and dry. Normal turgor. No rash. Palpitation: Normal elasticity for age Abdomen: Abdomen is soft. Bowel sounds +. There is no abdominal tenderness, no guarding/rigidity no organomegaly Psych: normal insight and normal affect/mood MSK: no joint tenderness or swelling. Objective - Vital Signs/Intake and Output Vital Signs (last 24 hours): Temp Pulse Resp BP Pulse Ox 98.9 F 70 20 115/79 98 12/04/17 15:00 12/04/17 16:00 12/04/17 15:00 12/04/17 15:00 12/04/17 15:00 - Medications Medications: Current Medications Amlodipine Besylate (Norvasc) 10 mg PO DAILY [facility] Last Admin: 12/04/17 09:35 Dose: 10 mg Aspirin (Aspirin Chewable) 81 mg PO DAILY [facility] Last Admin: 12/04/17 09:35 Dose: 81 mg Clonidine HCl (Catapres) 0.1 mg PO Q6 PRN PRN Reason: Other Last Admin: 12/03/17 02:10 Dose: 0.1 mg Enoxaparin Sodium (Lovenox) 40 mg SC DAILY [facility] Last Admin: 12/04/17 09:35 Dose: Not Given Labetalol HCl (Trandate) 200 mg PO BID [facility] Last Admin: 12/04/17 18:10 Dose: 200 mg Magnesium Oxide (Mag-Ox) 400 mg PO BID [facility] Last Admin: 12/04/17 18:10 Dose: 400 mg - Labs Labs: 12/04/17 11:46 12/04/17 11:46 PT 13.2 SECONDS (9.7-12.2) H 12/01/17 01:43 INR 1.2 12/01/17 01:43 APTT 36 SECONDS (21-34) H 12/01/17 01:43
[2017-12-05] MEDS: Magnesium Oxide 400 mg Tab UD PO SCH ×2 (09:24→17:51)
[2017-12-05] MEDS: Enoxaparin 40 mg Syringe SC SCH (09:25)
--- NOTE | 2017-12-05 12:23 | CP.PCM.PN ---
Subjective - Date & Time of Evaluation Date of Evaluation: 12/05/17 Time of Evaluation: 12:23 Objective - Vital Signs/Intake and Output Vital Signs (last 24 hours): Temp Pulse Resp BP Pulse Ox 98.2 F 82 20 120/76 98 12/05/17 07:00 12/05/17 07:50 12/05/17 07:00 12/05/17 07:00 12/05/17 07:00 - Medications Medications: Current Medications Amlodipine Besylate (Norvasc) 10 mg PO DAILY [facility] Last Admin: 12/05/17 09:24 Dose: 10 mg Aspirin (Aspirin Chewable) 81 mg PO DAILY [facility] Last Admin: 12/05/17 09:24 Dose: 81 mg Clonidine HCl (Catapres) 0.1 mg PO Q6 PRN PRN Reason: Other Last Admin: 12/03/17 02:10 Dose: 0.1 mg Enoxaparin Sodium (Lovenox) 40 mg SC DAILY [facility] Last Admin: 12/05/17 09:25 Dose: Not Given Labetalol HCl (Trandate) 200 mg PO BID [facility] Last Admin: 12/05/17 09:24 Dose: 200 mg Magnesium Oxide (Mag-Ox) 400 mg PO BID [facility] Last Admin: 12/05/17 09:24 Dose: 400 mg - Labs Labs: 12/04/17 11:46 12/04/17 11:46 PT 13.2 SECONDS (9.7-12.2) H 12/01/17 01:43 INR 1.2 12/01/17 01:43 APTT 36 SECONDS (21-34) H 12/01/17 01:43
--- NOTE | 2017-12-05 21:35 | CP.PCM.PN ---
Subjective - Date & Time of Evaluation Date of Evaluation: 12/05/17 Time of Evaluation: 12:10 - Subjective Subjective: Patient seen and evaluated Denies chest pain and dyspnea Objective - Vital Signs/Intake and Output Vital Signs (last 24 hours): Temp Pulse Resp BP Pulse Ox 98.4 F 78 20 131/83 98 12/05/17 15:00 12/05/17 15:00 12/05/17 15:00 12/05/17 15:00 12/05/17 15:00 - Medications Medications: Current Medications Alprazolam (Xanax) 0.25 mg PO Q12H PRN PRN Reason: Anxiety Stop: 12/12/17 20:49 Last Admin: 12/05/17 21:25 Dose: 0.25 mg Amlodipine Besylate (Norvasc) 10 mg PO DAILY [facility] Last Admin: 12/05/17 09:24 Dose: 10 mg Aspirin (Aspirin Chewable) 81 mg PO DAILY [facility] Last Admin: 12/05/17 09:24 Dose: 81 mg Clonidine HCl (Catapres) 0.1 mg PO Q6 PRN PRN Reason: Other Last Admin: 12/03/17 02:10 Dose: 0.1 mg Enoxaparin Sodium (Lovenox) 40 mg SC DAILY [facility] Last Admin: 12/05/17 09:25 Dose: Not Given Labetalol HCl (Trandate) 200 mg PO BID [facility] Last Admin: 12/05/17 17:51 Dose: 200 mg Magnesium Oxide (Mag-Ox) 400 mg PO BID [facility] Last Admin: 12/05/17 17:51 Dose: 400 mg - Labs Labs: 12/04/17 11:46 12/04/17 11:46 PT 13.2 SECONDS (9.7-12.2) H 12/01/17 01:43 INR 1.2 12/01/17 01:43 APTT 36 SECONDS (21-34) H 12/01/17 01:43
[2017-12-06 07:39] VITALS: RESP 20
[2017-12-06] MEDS: Magnesium Oxide 400 mg Tab UD PO SCH (09:04)
[2017-12-06] MEDS: Enoxaparin 40 mg Syringe SC SCH (09:04)
--- NOTE | 2017-12-06 14:22 | CP.PCM.PN ---
Subjective - Date & Time of Evaluation Date of Evaluation: 12/06/17 Time of Evaluation: 14:22 - Subjective Subjective: PATIENT SITTING AT THE BEDSIDE DENIES CHEST PAIN SOB/ HEADACHE NAUSEA OR VOMITING NO SIGN OF DISTRESS NOTED Objective - Vital Signs/Intake and Output Vital Signs (last 24 hours): Temp Pulse Resp BP Pulse Ox 98.1 F 72 20 122/83 98 12/06/17 07:38 12/06/17 07:38 12/06/17 07:38 12/06/17 07:38 12/06/17 07:38 Intake and Output: 12/06/17 12/06/17 06:59 18:59 Intake Total 800 Balance 800 - Medications Medications: Current Medications Alprazolam (Xanax) 0.25 mg PO Q12H PRN PRN Reason: Anxiety Stop: 12/12/17 20:49 Last Admin: 12/05/17 21:25 Dose: 0.25 mg Amlodipine Besylate (Norvasc) 10 mg PO DAILY [facility] Last Admin: 12/06/17 09:04 Dose: 10 mg Aspirin (Aspirin Chewable) 81 mg PO DAILY [facility] Last Admin: 12/06/17 09:04 Dose: 81 mg Clonidine HCl (Catapres) 0.1 mg PO Q6 PRN PRN Reason: Other Last Admin: 12/03/17 02:10 Dose: 0.1 mg Enoxaparin Sodium (Lovenox) 40 mg SC DAILY [facility] Last Admin: 12/06/17 09:04 Dose: Not Given Labetalol HCl (Trandate) 200 mg PO BID [facility] Last Admin: 12/06/17 09:04 Dose: 200 mg Magnesium Oxide (Mag-Ox) 400 mg PO BID [facility] Last Admin: 12/06/17 09:04 Dose: 400 mg - Labs Labs: 12/04/17 11:46 12/04/17 11:46 PT 13.2 SECONDS (9.7-12.2) H 12/01/17 01:43 INR 1.2 12/01/17 01:43 APTT 36 SECONDS (21-34) H 12/01/17 01:43 Assessment and Plan - Assessment and Plan (Free Text) Assessment: PATIENT SEEN AND EXAMINED AT THE BEDSIDE LUNG SOUND CLEAR CM VITAL SIGN STABLE FOLLOW UP WITH PMD DR GONZALEZ IN 1-2 WEEKS ---CALL FOR APPOINTMENT FOLLOW UP WITH DR TREJO AT HER OFFICE ---CALL FOR APPOINTMENT FOLLOW UP WITH DR NICHOLSON AT HIS OFFICE IN 2 WEEKS --CALL FOR APPOINTMENT CONTINUE ALL YOUR HOME MEDICATION LABETELOL 200 MG PO TWICE A DAY CLONIDINE 0.1 PO EVERY 6 HOURS PRN FOR BP IF SBP >160 OR DBP>110 STOP TAKING THE INDERAL ACTIVITY TOLERATED CALL DR BOWEN OR YOUR PMD DR GONZALEZ OR GO TO THE EMERGENCY ROOM IF SYMPTOMS RETURN OR WORSENING
--- NOTE | 2017-12-06 15:07 | CP.PCM.DIS ---
Provider - Provider Date of Admission: 12/01/17 05:16 Attending physician: Paco Aldana MD Primary care physician: Yunior Gonzalez MD Phd Hospital Course - Lab Results Lab Results: Most Recent Lab Values WBC 7.8 K/uL (4.8-10.8) 12/04/17 11:46 RBC 4.65 Mil/uL (3.80-5.20) 12/04/17 11:46 Hgb 14.2 g/dL (11.0-16.0) 12/04/17 11:46 Hct 42.2 % (34.0-47.0) 12/04/17 11:46 MCV 90.8 fL (81.0-99.0) 12/04/17 11:46 MCH 30.6 pg (27.0-31.0) 12/04/17 11:46 MCHC 33.7 g/dL (33.0-37.0) 12/04/17 11:46 RDW 13.7 % (11.5-14.5) 12/04/17 11:46 Plt Count 302 K/uL (130-400) 12/04/17 11:46 MPV 7.9 fL (7.2-11.7) 12/04/17 11:46 Neut % (Auto) 77.0 % (50.0-75.0) H 12/04/17 11:46 Lymph % (Auto) 11.8 % (20.0-40.0) L 12/04/17 11:46 Lar[place]ie % (Auto) 9.2 % (0.0-10.0) 12/04/17 11:46 Eos % (Auto) 1.5 % (0.0-4.0) 12/04/17 11:46 Baso % (Auto) 0.5 % (0.0-2.0) 12/04/17 11:46 Neut # (Auto) 6.0 K/uL (1.8-7.0) 12/04/17 11:46 Lymph # (Auto) 0.9 K/uL (1.0-4.3) L 12/04/17 11:46 [place]ie # (Auto) 0.7 K/uL (0.0-0.8) 12/04/17 11:46 Eos # (Auto) 0.1 K/uL (0.0-0.7) 12/04/17 11:46 Baso # (Auto) 0.0 K/uL (0.0-0.2) 12/04/17 11:46 Neutrophils % (Manual) 81 % (50-75) H 12/01/17 01:43 Lymphocytes % (Manual) 8 % (20-40) L 12/01/17 01:43 Monocytes % (Manual) 9 % (0-10) 12/01/17 01:43 Eosinophils % (Manual) 2 % (0-4) 12/01/17 01:43 Platelet Estimate Normal (NORMAL) 12/01/17 01:43 PT 13.2 SECONDS (9.7-12.2) H 12/01/17 01:43 INR 1.2 12/01/17 01:43 APTT 36 SECONDS (21-34) H 12/01/17 01:43 Sodium 143 mmol/L (132-148) 12/04/17 11:46 Potassium 4.3 mmol/L (3.6-5.2) 12/04/17 11:46 Chloride 103 mmol/L (98-107) 12/04/17 11:46 Carbon Dioxide 28 mmol/L (22-30) 12/04/17 11:46 Anion Gap 17 (10-20) 12/04/17 11:46 BUN 11 mg/dL (7-17) 12/04/17 11:46 Creatinine 0.9 mg/dL (0.7-1.2) 12/04/17 11:46 Est GFR ( Amer) > 60 12/04/17 11:46 Est GFR (Non-Af Amer) > 60 12/04/17 11:46 Random Glucose 109 mg/dL (65-105) H 12/04/17 11:46 Calcium 9.5 mg/dl (8.6-10.4) 12/04/17 11:46 Magnesium 2.2 mg/dL (1.6-2.3) 12/01/17 01:43 Total Bilirubin 1.3 mg/dL (0.2-1.3) 12/01/17 01:43 AST 39 U/L (14-36) H D 12/01/17 01:43 ALT 42 U/L (9-52) 12/01/17 01:43 Alkaline Phosphatase 59 U/L (38-126) 12/01/17 01:43 Total Creatine Kinase 59 U/L (30-135) 12/01/17 16:58 CK-MB (Mass) 0.23 ng/mL (0.0-3.38) 12/01/17 16:58 Troponin I < 0.0120 ng/mL (0.00-0.120) 12/01/17 16:58 Total Protein 7.9 g/dL (6.3-8.3) 12/01/17 01:43 Albumin 4.5 g/dL (3.5-5.0) 12/01/17 01:43 Globulin 3.3 gm/dL (2.2-3.9) 12/01/17 01:43 Albumin/Globulin Ratio 1.4 (1.0-2.1) 12/01/17 01:43 Aldosterone 8 ng/dL 12/01/17 16:53 Free T4 1.30 ng/dL (0.78-2.19) 12/01/17 05:54 TSH 3rd Generation 1.61 mIU/L (0.46-4.68) 12/01/17 05:54 Cortisol AM Sample 12.0 ug/dL (4.46-22.7) 12/01/17 05:54 Urine Color Straw (YELLOW) 12/01/17 01:43 Urine Clarity Clear (Clear) 12/01/17 01:43 Urine pH 7.0 (5.0-8.0) 12/01/17 01:43 Ur Specific Chinle 1.003 (1.003-1.030) 12/01/17 01:43 Urine Protein Negative mg/dL (NEGATIVE) 12/01/17 01:43 Urine Glucose (UA) Normal mg/dL (Normal) 12/01/17 01:43 Urine Ketones Negative mg/dL (NEGATIVE) 12/01/17 01:43 Urine Blood Negative (NEGATIVE) 12/01/17 01:43 Urine Nitrate Negative (NEGATIVE) 12/01/17 01:43 Urine Bilirubin Negative (NEGATIVE) 12/01/17 01:43 Urine Urobilinogen Normal mg/dL (0.2-1.0) 12/01/17 01:43 Ur Leukocyte Esterase Trace Marly/uL (Negative) 12/01/17 01:43 Urine WBC (Auto) 1 /hpf (0-5) 12/01/17 01:43 Urine RBC (Auto) < 1 /hpf (0-3) 12/01/17 01:43 Ur Squamous Epith Cells < 1 /hpf (0-5) 12/01/17 01:43 Urine Bacteria Many (<OCC) H 12/01/17 01:43 Urine HCG, Qual Negative (NEGATIVE) 12/01/17 01:43 Urine Opiates Screen Negative (NEGATIVE) 12/01/17 21:00 Urine Methadone Screen Negative (NEGATIVE) 12/01/17 21:00 Ur Barbiturates Screen Negative (NEGATIVE) 12/01/17 21:00 Ur Phencyclidine Scrn Negative (NEGATIVE) 12/01/17 21:00 Ur Amphetamines Screen Negative (NEGATIVE) 12/01/17 21:00 U Benzodiazepines Scrn Negative (NEGATIVE) 12/01/17 21:00 U Oth Cocaine Metabols Negative (NEGATIVE) 12/01/17 21:00 U Cannabinoids Screen Negative (NEGATIVE) 12/01/17 21:00 LINDA Screen Positive (NEGATIVE) H 12/01/17 16:53 LINDA Titer >=1:1280 titer H 12/01/17 16:53 LINDA Pattern Lysosomal 12/01/17 16:53 SS-A Antibody <1.0 neg AI (<1.0 NEGATIVE) 12/01/17 16:53 SS-B Antibody <1.0 neg AI (<1.0 NEGATIVE) 12/01/17 16:53 Sm (Mooney) Antibody <1.0 neg AI (<1.0 NEGATIVE) 12/01/17 16:53 SM/[employer]TE[employer]CE [employer]PER[employer] Antibody <1.0 neg AI (<1.0 NEGATIVE) 12/01/17 16:53 Scl-70 Antibody <1.0 neg AI (<1.0 NEGATIVE) 12/01/17 16:53 Ribosomal P Prot Ab <1.0 neg AI (<1.0 NEGATIVE) 12/01/17 16:53 Actin IgG Antibody <20 U 12/01/17 16:53 Discharge Plan - Discharge Medications Prescriptions: cloNIDine [Catapres] 0.1 mg PO Q6H PRN 15 Days tab PRN Reason: Anxiety Labetalol [Trandate] 200 mg PO BID 30 Days tab ALPRAZolam [Xanax] 0.25 mg PO BID PRN #20 tab PRN Reason: Anxiety - Follow Up Plan Condition: FAIR Disposition: HOME/ ROUTINE Instructions: Headache, Adult (DC), Clonidine, Labetalol, Palpitations (DC), Hypertension (DC) Additional Instructions: FOLLOW UP WITH PMD DR GONZALEZ IN 1-2 WEEKS ---CALL FOR APPOINTMENT FOLLOW UP WITH DR PENA AT HER OFFICE ---CALL FOR APPOINTMENT FOLLOW UP WITH DR NICHOLSON AT HIS OFFICE IN 2 WEEKS --CALL FOR APPOINTMENT CONTINUE ALL YOUR HOME MEDICATION LABETELOL 200 MG PO TWICE A DAY CLONIDINE 0.1 PO EVERY 6 HOURS PRN FOR BP IF SBP >160 OR DBP>110 STOP TAKING THE INDERAL ACTIVITY TOLERATED CALL DR ALDANA OR YOUR PMD DR GONZALEZ OR GO TO THE EMERGENCY ROOM IF SYMPTOMS RETURN OR WORSENING Referrals: Costa Orantes MD [Staff Provider] - Paco Aldana MD [Staff Provider] - Shreyas Nicholson MD [Staff Provider] - Uday Pena MD [Staff Provider] -
--- NOTE | 2017-12-06 15:17 | CP.PCM.PN ---
Subjective - Date & Time of Evaluation Date of Evaluation: 12/06/17 Time of Evaluation: 15:15 - Subjective Subjective: Nephrology Consultation Note: Assessment: Stable uncontrolled hypertension now better r/o sec HTN Obesity pit microadenoma/prolactinoma s/p therapy with carbergoline migraine headaches ? stress anxiety disorder LINDA +++ Left adrenal nodule Plan Hypertension control with meds as ordered. Patient not on ACEI/ARB, continue with clonidine prn for now pending work up for secondary HTN. continue with labetalol 200 mg bid HTN work up with renin/aldosterone and catecholamines sent. results on renal artery doppler neg. hx of headaches/muscle aches: sent lupus anticoagulant, SCL ab and SLE labs cortisol level 12 but she received steroids last week hence should repeat in few weeks after 1 mg dexamethasone as pt with left adrenal nodule urine for drug screen: negative neurology for headache management LINDA +++ pending rest of autoimmune work up pt stable for d/c from renal perspective with outpt follow up in 1 week Dose meds/antibiotics for normal GFR. Glycemic control Further work up/management as per primary team Thanks for allowing me to participate in care of your patient. Will follow patient with you. Please call if any Qs. d/w mother and team as well Dr Shreyas Bella Office: [phone] Chief Complaint; HTN and palpitations HPI: Pt is a 47 F with hx of pit microadenoma/prolactinoma s/p therapy with carbergoline, hypertension (2 years) which is mostly controlled with home SBP in 120-130s and DBP 80s range presented with complaints of palpitations with elevated BP in 180s. she was also having tingling numbnes sensation in arms, headache associated with it. now better. reports chronic SOB on exertion and sweatiness. also c/o weight gain over last 3 months Denies OTC/herbal meds or NSAIDs denies smiking/etoh/drugs/licorice/decongestants/tobacco chewing reports usual work related stress also reported muscle aches, heart burn and joint aches ROS: noted overnight events. denies CP/SOB/nausea/vomiting All other negative except morning headaches and as mentioned in HPI Physical Examination: General Appearance: Comfortable, in no acute respiratory distress, co-operative . Vitals reviewed and noted as below Head; Atraumatic, normocephalic ENT: no ulcers no thrush. Tongue is midline. Oropharynx: no rash or ulcers. EYES: Pupils are equal, round and reactive to light accommodation. Eye muscles and extraocular movement intact. Sclera is anicteric. Neck; supple no lymphadenopathy, no thyromegaly or bruit Lungs: Normal respiratory rate/effort. Breath sounds bilateral equal and clear Heart: Normal rate. s1s2 normal. No rub or gallop. Extremities: no edema. No varicose veins Neurological: Patient is alert, awake and oriented to person, place and time. No focal deficit. Strength bilateral appropriate and equal Skin: Warm and dry. Normal turgor. No rash. Palpitation: Normal elasticity for age Abdomen: Abdomen is soft. Bowel sounds +. There is no abdominal tenderness, no guarding/rigidity no organomegaly Psych: normal insight and normal affect/mood MSK: no joint tenderness or swelling. Digits and nails normal, no deformity : kidney or bladder not palpable Labs/imaging reviewed. Past medical history, past surgical history, family history, social history, allergy reviewed and noted as below Family hx: no hx of CKD. Rest non-contributory echo: normal LV function and thickness, no pulm HTN or valv insuff UA no blood or protein LINDA +++ left adrenal nodule Objective - Vital Signs/Intake and Output Vital Signs (last 24 hours): Temp Pulse Resp BP Pulse Ox 98.1 F 72 20 122/83 98 12/06/17 07:38 12/06/17 07:38 12/06/17 07:38 12/06/17 07:38 12/06/17 07:38 Intake and Output: 12/06/17 12/06/17 06:59 18:59 Intake Total 800 Balance 800 - Medications Medications: Current Medications Alprazolam (Xanax) 0.25 mg PO Q12H PRN PRN Reason: Anxiety Stop: 12/12/17 20:49 Last Admin: 12/05/17 21:25 Dose: 0.25 mg Amlodipine Besylate (Norvasc) 10 mg PO DAILY [facility] Last Admin: 12/06/17 09:04 Dose: 10 mg Aspirin (Aspirin Chewable) 81 mg PO DAILY [facility] Last Admin: 12/06/17 09:04 Dose: 81 mg Clonidine HCl (Catapres) 0.1 mg PO Q6 PRN PRN Reason: Other Last Admin: 12/03/17 02:10 Dose: 0.1 mg Enoxaparin Sodium (Lovenox) 40 mg SC DAILY [facility] Last Admin: 12/06/17 09:04 Dose: Not Given Labetalol HCl (Trandate) 200 mg PO BID [facility] Last Admin: 12/06/17 09:04 Dose: 200 mg Magnesium Oxide (Mag-Ox) 400 mg PO BID [facility] Last Admin: 12/06/17 09:04 Dose: 400 mg - Labs Labs: 12/04/17 11:46 12/04/17 11:46 PT 13.2 SECONDS (9.7-12.2) H 12/01/17 01:43 INR 1.2 12/01/17 01:43 APTT 36 SECONDS (21-34) H 12/01/17 01:43
[2017-12-06 16:04] VITALS: BP 118/86; PULSE 75; TEMP 98
[2017-12-07 02:48] LABS: ALDO/PRA RATIO 22.9 Ratio (0.9-28.9)
== END 2017-12-06 16:36 | disposition home or self-care (01) | DRG 305 ==
LOC: C.ER 00:16 → SUPCPDRO 00:16 → C.9E 05:16 → C.5S 06:10
PROVIDERS: ADMIT Internal Medicine Critical Care Medicine; ATTEND Internal Medicine Critical Care Medicine
DX: I10 Essential (primary) hypertension (principal); F41.9 Anxiety disorder, unspecified; E66.9 Obesity, unspecified; E04.2 Nontoxic multinodular goiter; Z86.73 Personal history of transient ischemic attack (TIA), and cerebral infarction without residual deficits; E27.8 Other specified disorders of adrenal gland; Z68.31 Body mass index [BMI] 31.0-31.9, adult